=== PATIENT | female | born 1945 | race Caucasian/White ===

== ENCOUNTER 2025-01-25 11:45 | Observation (INO) ==
--- NOTE | 2025-01-25 11:48 | Emergency Department Note ---
Impression & Plan Hypertensive urgency, Chest pain ED Provider Note NAME: HOLLEY BOONE AGE: 79 SEX: F : 1945 ARRIVES VIA: Ambulance INFORMANT: Patient, ED PROVIDER(S): Rodríguez Beasley MD CHIEF COMPLAINT: Chest pressure MEDICAL DECISION MAKING: Patient presents with the above reportedly did have resolution of symptoms with the time of assessment was 6 out of 10. Patient still noted to be hypertensive. The patient's EKG without any obvious ischemic changes although from comparison of EKG en route the patient may have had subtle depressions in the lateral leads. Patient was ordered blood work EKG troponin chest x-ray. Patient was ordered sublingual nitro as the patient's blood pressure was in the 160s. Prior to arrival was noted to be greater than 200. Patient's blood work shows a normal white count mild anemia hemoglobin 9.8. Platelet count is unremarkable. The patient's kidney function unremarkable. Chest x-ray does show consolidative changes which could be pneumonia versus atelectasis. Patient states that she has chronic cough but this is unchanged. Urinalysis shows ketones and trace blood in the urine. Patient denies any shortness of breath. Given the patient's significant hypertension and associated chest plain with her prehospital EKG showing subtle depressions in the lateral leads do believe the patient would benefit from admission monitoring echo and further antihypertensive control strategies. I did speak with the on- call hospitalist service MARIA G Lin and the patient was admitted to medicine service by Dr. Rico. Discussion w/ other healthcare providers: Sam Abreu PA-C Prior /Outside records reviewed: None Differential diagnosis: Cardiac ischemia, aortic dissection, pulmonary embolism, pneumothorax, pneumonia, pericarditis, myocarditis, GERD, cholecystitis, pancreatitis, musculoskeletal, as well as other pathologies were considered. Diagnostics, as interpreted by me: ECG: Normal sinus rhythm, rate of 75, normal intervals, normal axis no ST elevations. Prehospital EKG interpreted by myself Normal sinus rhythm, rate of 82, normal intervals, normal axis, possible subtle depressions in the lateral leads. No obvious STEMI. Cardiac monitoring: An order was placed for continuous cardiac monitoring. The monitor shows a rate of 62 with sinus rhythm. Patient was placed on pulse oximetry Medical decision rules: None Imaging studies: I informally interpreted the patient's Consolidative changes noted at the bilateral bases with formal report to follow. HPI: Patient presents due to concern for chest pain. The patient reportedly developed chest pressure around 10 AM today. The patient states that it was diffuse and nonradiating but 10 out of 10 in nature. Patient reportedly was hypertensive with a systolic in the 200s. The patient states that this is not happened before. Patient states she has a chronic cough and a history of asthma but this does not feel similar. Patient did take thyroid medication this morning but does not take any other medicines. Patient denies any shortness of breath no leg swelling or calf pain. Patient denies any prior history of DVT or PE. PAST MEDICAL HISTORY: See Below PAST SURGICAL HISTORY: See Below SOCIAL HISTORY: See Below HOME MEDICATIONS: See Below ALLERGIES: See Below VITALS: See Below PHYSICAL EXAMINATION: GENERAL: NAD, non-toxic. EYE EXAM: Normal conjunctiva. PERRL, no anisocoria and EOM's grossly intact w/o pain. OROPHARYNX: Moist mucus membranes, grossly normal dentition. NECK: Trachea midline, no stridor. Supple, no nuchal rigidity, no adenopathy, non-tender. No signs of meningismus. FROM of the neck with good chin to chest and neck extension. LUNGS: Clear to auscultation. Normal chest wall mechanics. HEART: NSR, no MRG. ABDOMEN: Abdomen soft, non-tender, no masses, no rebound or guarding. BACK: No CVA TTP. SKIN: No rashes and no bruising. UPPER EXTREMITIES: Upper extremities are grossly normal. LOWER EXTREMITIES: Grossly normal, no edema. NEURO EXAM: A&O x3, cranial nerves II-XII grossly intact, normal speech, moves all 4 extremities. Past Med/Surg History Problem List (Updated 01/25/25 @ 16:53 by Rodríguez Beasley MD) Hypertensive urgency (Acute) Chest pain (Acute) Pituitary adenoma TIA (transient ischemic attack) Brain TIA (Acute) Medical History (Updated 01/25/25 @ 16:53 by Rodríguez Beasley MD) Anxiety Family History Other Family history non-contributory Social History Smoking Status: Never smoker Do You Dip or Chew Tobacco: No; Hx Alcohol Use: Yes Alcohol type: wine Hx Substance Use: No Preferred Language: Marshallese Communication Ability: Effective Hr Shared Services Consultant Required: No Beliefs That Will Affect Care: None marital status: Single Current Living Situation: Alone Feels Safe at Home: Yes Assistive Devices: None Allergies Allergies Allergy/AdvReac Type Severity Reaction Status Date / Time CLINDAMYCIN Allergy Unknown DIARRHEA Uncoded 10/10/18 03:19 SELDANE Allergy Unknown BP Uncoded 10/10/18 03:19 INCREASED ZITHROMAX Allergy Unknown ? Uncoded 10/10/18 03:19 Home Meds Home Medications Medication Instructions Recorded Confirmed Calcium 600 + D(3) 1 tab PO DAILY 10/10/18 01/25/25 albuterol sulfate 90 mcg/actuation 2 puff inhalation Q6H PRN 10/10/18 01/25/25 aerosol inhaler Shortness Of Breath Or Wheezing escitalopram oxalate 10 mg tablet 20 mg PO DAILY 10/10/18 01/25/25 montelukast 10 mg tablet 10 mg PO PM 10/10/18 01/25/25 aspirin 81 mg tablet 81 mg PO HS 01/25/25 01/25/25 atorvastatin 20 mg tablet 20 mg PO DAILY 01/25/25 01/25/25 ibandronate 150 mg tablet 150 mg PO MONTHLY 01/25/25 01/25/25 levothyroxine 25 mcg tablet 25 mcg PO DAILY 01/25/25 01/25/25 Results & Data (ED) Vital Signs Vital Signs - 24 hr 01/25/25 11:32 01/25/25 11:32 01/25/25 11:56 Temperature 36.6 C Temperature Source Oral Pulse Rate 75 64 Pulse Rate from SpO2 Sensor 66 Pulse Rhythm Regular Pulse Strength Normal Respiratory Rate 20 15 Respiratory Effort / Characteristics Non-Labored Spontaneous Non-Labored Spontaneous Respiratory Depth Normal Normal Respiratory Pattern Regular Blood Pressure 165/74 H Blood Pressure Mean 104 Blood Pressure Position Semi-fowlers Pulse Oximetry 98 97 Oxygen Delivery Method Room Air Room Air Room Air Sepsis Recent Fever Within 48 Hours No Sepsis New/Unexplained Change in Mental Status No Sepsis Action Taken by Nursing No Action Required 01/25/25 12:00 01/25/25 12:03 01/25/25 12:05 Temperature Temperature Source Pulse Rate 69 62 Pulse Rate from SpO2 Sensor 65 Pulse Rhythm Pulse Strength Respiratory Rate 16 22 Respiratory Effort / Characteristics Respiratory Depth Respiratory Pattern Blood Pressure 177/96 H Blood Pressure Mean 115 Blood Pressure Position Pulse Oximetry 98 99 Oxygen Delivery Method Room Air Room Air Sepsis Recent Fever Within 48 Hours Sepsis New/Unexplained Change in Mental Status Sepsis Action Taken by Nursing 01/25/25 12:15 01/25/25 12:23 01/25/25 12:26 Temperature Temperature Source Pulse Rate 72 60 Pulse Rate from SpO2 Sensor 60 Pulse Rhythm Pulse Strength Respiratory Rate 15 Respiratory Effort / Characteristics Respiratory Depth Respiratory Pattern Blood Pressure 140/73 Blood Pressure Mean 110 Blood Pressure Position Pulse Oximetry 100 Oxygen Delivery Method Room Air Sepsis Recent Fever Within 48 Hours Sepsis New/Unexplained Change in Mental Status Sepsis Action Taken by Nursing 01/25/25 12:26 01/25/25 12:30 01/25/25 12:30 Temperature Temperature Source Pulse Rate Pulse Rate from SpO2 Sensor Pulse Rhythm Pulse Strength Respiratory Rate Respiratory Effort / Characteristics Respiratory Depth Respiratory Pattern Blood Pressure 140/73 141/78 H 141/78 H Blood Pressure Mean 110 97 97 Blood Pressure Position Pulse Oximetry Oxygen Delivery Method Sepsis Recent Fever Within 48 Hours Sepsis New/Unexplained Change in Mental Status Sepsis Action Taken by Nursing 01/25/25 12:35 01/25/25 12:56 01/25/25 13:00 Temperature Temperature Source Pulse Rate 60 70 Pulse Rate from SpO2 Sensor 61 58 L Pulse Rhythm Pulse Strength Respiratory Rate 19 19 Respiratory Effort / Characteristics Respiratory Depth Respiratory Pattern Blood Pressure 138/80 Blood Pressure Mean 98 Blood Pressure Position Pulse Oximetry 95 Oxygen Delivery Method Room Air Sepsis Recent Fever Within 48 Hours Sepsis New/Unexplained Change in Mental Status Sepsis Action Taken by Nursing 01/25/25 13:00 01/25/25 13:02 01/25/25 13:33 Temperature Temperature Source Pulse Rate 56 L Pulse Rate from SpO2 Sensor 56 L 59 L Pulse Rhythm Pulse Strength Respiratory Rate 17 Respiratory Effort / Characteristics Respiratory Depth Respiratory Pattern Blood Pressure 138/80 Blood Pressure Mean 98 Blood Pressure Position Pulse Oximetry 98 98 Oxygen Delivery Method Room Air Room Air Sepsis Recent Fever Within 48 Hours Sepsis New/Unexplained Change in Mental Status Sepsis Action Taken by [facility] Medications Current Medication List: was personally reviewed by me Laboratory Data Attestation: I reviewed the patient's lab results. 01/25/25 12:00 01/25/25 12:00 Lab Results 01/25/25 Range/Units 12:00 WBC 7.04 (4.8-10.8) K/ul RBC 4.15 L (4.20-5.40) M/uL Hgb 11.8 L (12.0-16.0) g/dl Hct 35.9 L (37.0-47.0) % MCV 86.5 (80.0-100.0) fL MCH 28.4 (25.0-34.0) pg MCHC 32.9 (32.0-36.0) g/dL RDW Std Deviation 43.8 (36.4-46.3) fL RDW Coeff of Sharif 13.9 (11.5-14.5) % Plt Count 240 (130-400) K/uL MPV 10.9 (9.4-12.4) fL Immature Gran % (Auto) 0.3 % Neut % (Auto) 37.6 % Lymph % (Auto) 48.4 % Mcmullen % (Auto) 9.5 % Eos % (Auto) 3.6 % Baso % (Auto) 0.6 % Neut # (Auto) 2.65 (1.40-6.50) K/uL Lymph # (Auto) 3.41 H (1.20-3.40) K/uL Mcmullen # (Auto) 0.67 H (0.11-0.59) K/uL Eos # (Auto) 0.25 (0.00-0.50) K/uL Baso # (Auto) 0.04 (0.00-0.20) K/uL Immature Gran # (Auto) 0.02 (0.01-0.20) K/uL PT 10.6 (9.0-12.0) Seconds INR 1.0 (0.9-1.1) APTT 26 (21-31) Seconds PTT Ratio 1.0 Sodium 136 (136-145) mmol/L Potassium 4.1 (3.5-5.1) mmol/L Chloride 103 (98-107) mmol/L Carbon Dioxide 27 (21-32) mmol/L Anion Gap 6 (3-11) BUN 23 (6-23) mg/dl Creatinine 0.76 (0.6-1.2) mg/dl Est Cr Clr Drug Dosing 54.9 ml/min eGFR 79.16 BUN/Creatinine Ratio 30.3 H (10-20) Glucose 110 H (70-99(Fasting)) mg/dl Calcium 8.7 (8.6-10.3) mg/dl Total Bilirubin 0.7 (0.2-1.0) mg/dl AST 25 (13-39) U/L ALT 19 (7-52) U/L Alkaline Phosphatase 69 (34-104) U/L Troponin I High Sens 5.8 (0-14) pg/ml Total Protein 6.9 (6.0-8.3) gm/dl Albumin 4.0 (3.4-5.0) gm/dl Globulin 2.9 (2.5-4.0) gm/dl Albumin/Globulin Ratio 1.4 (0.9-2) Lipase 41 (11-82) U/L Administered Medications Losartan Potassium (Losartan Potassium 50 Mg Tab) 100 mg PO QAM ALISA Stop: 02/24/25 14:48 Last Admin: 01/25/25 15:48 Dose: 100 mg Documented By: [facility] Discontinued Medications Nitroglycerin (Nitroglycerin Sl 0.4 Mg/Tab Tab) 0.4 mg SL NOW STA Stop: 01/25/25 12:05 Last Admin: 01/25/25 12:23 Dose: 0.4 mg Documented By: [facility] Imaging Data Radiologist's Impression: Chest X-Ray 01/25/25 12:03 XR chest 1V portable CLINICAL HISTORY: Chest pain, nonspecific COMPARISON STUDY: 10/10/2018 FINDINGS: Stable mild cardiomegaly without pulmonary vascular congestion. There is interval mild stranding opacity in the lung bases. No other consolidation or pleural effusion. No pneumothorax. IMPRESSION: Atelectasis versus early pneumonia in the lung bases. ACT 112: Negative or not required by law. Electronically signed by: Frantz Lacey M.D. 01/25/2025 12:55 PM Discharge Plan Visit Data Chief Complaint: Cardiac Assessment ED Provider: Rodríguez Beasley Discharge Problem: Hypertensive urgency, Chest pain Patient Disposition: Admitted As Inpatient Discharge Instructions Interventions: ED Discharge Assessment Last Done: 01/25/25 14:14 Discharge Problem: Chest pain Qualifiers: Chest pain type: unspecified Qualified Code(s): R07.9 - Chest pain, unspecified
[2025-01-25] MEDS: NITROGLYCERIN SL 0.4 MG/TAB TAB SL STA (12:23)
--- NOTE | 2025-01-25 12:56 | XRay Report ---
XR chest 1V portable CLINICAL HISTORY: Chest pain, nonspecific COMPARISON STUDY: 10/10/2018 FINDINGS: Stable mild cardiomegaly without pulmonary vascular congestion. There is interval mild stra nding opacity in the lung bases. No other consolidation or pleural effusion. No pneumothorax. IMPRESSION: Atelectasis versus early pneumonia in the lung bases. ACT 112: Negative or not required by law. Electronically signed by: Frantz Lacey M.D. 01/25/2025 12:55 PM
[2025-01-25 13:01] LABS: Basophils # (auto) 0.04 K/uL (0.00-0.20); Basophils % (auto) 0.6 %; Eosinophils # (auto) 0.25 K/uL (0.00-0.50); Eosinophils % (auto) 3.6 %; Hematocrit (blood only) 35.9 % (37.0-47.0); Hemoglobin 11.8 g/dl (12.0-16.0); Immature Granulocytes # (auto) 0.02 K/uL (0.01-0.20); Immature Granulocytes % (auto) 0.3 %; Lymphocytes # (auto) 3.41 K/uL (1.20-3.40); Lymphocytes % (auto) 48.4 %; Mean Corpuscular Hemoglobin 28.4 pg (25.0-34.0); Mean Corpuscular Hgb Conc 32.9 g/dL (32.0-36.0); Mean Corpuscular Volume 86.5 fL (80.0-100.0); Mean Platelet Volume 10.9 fL (9.4-12.4); Monocytes # (auto) 0.67 K/uL (0.11-0.59); Monocytes % (auto) 9.5 %; Neutrophils # (auto) 2.65 K/uL (1.40-6.50); Neutrophils % (auto) 37.6 %; Platelet Count 240 K/uL (130-400); RDW Coefficient of Variation 13.9 % (11.5-14.5); RDW Standard Deviation 43.8 fL (36.4-46.3); Red Blood Count 4.15 M/uL (4.20-5.40); White Blood Count 7.04 K/ul (4.8-10.8)
[2025-01-25 13:05] LABS: Albumin Globulin Ratio 1.4 (0.9-2); BUN Creatinine Ratio 30.3 (10-20); Bilirubin,Total 0.7 mg/dl (0.2-1.0); Calcium 8.7 mg/dl (8.6-10.3); Creatinine Clr Calc Pharmacy 54.9 ml/min; Globulin 2.9 gm/dl (2.5-4.0); Partial Thromboplastin Time 26 Seconds (21-31); Potassium 4.1 mmol/L (3.5-5.1); Prothrombin Time 10.6 Seconds (9.0-12.0); Total Protein 6.9 gm/dl (6.0-8.3)
[2025-01-25 13:10] LABS: Troponin I High Sensitivity 5.8 pg/ml (0-14)
--- NOTE | 2025-01-25 13:21 | Electrocardiogram Report ---
Test Reason : Blood Pressure : */* mmHG Vent. Rate : 75 BPM Atrial Rate : 75 BPM P-R Int : 172 ms QRS Dur : 80 ms QT Int : 378 ms P-R-T Axes : 37 0 29 degrees QTcB Int : 422 ms Normal sinus rhythm Normal ECG When compared with ECG of 10-Oct-2018 01:33, Premature supraventricular complexes are no longer Present Confirmed by Wayne Nogueira ([id number]) on 01/25/2025 1:20:36 PM Referred By: REFERRED SELF Confirmed By: Wayne Nogueira
--- NOTE | 2025-01-25 13:29 | History & Physical Report ---
Date of Service January 25, 2025 Assessment & Plan (1) Chest pain: Plan: Mandy Mosley is an 79y/o F with PMHx significant for pituitary macroadenoma, HLD, acquired hypothyroidism, prediabetes, mild persistent asthma without complication, mixed rhinitis, senile osteoporosis, anemia, mixed urge and stress incontinence, depression with anxiety and history of TIA who presented to the ED via EMS from home with complaint of chest pain. S/p 324mg ASA and 2 doses of SL nitroglycerin with resolution of her chest pain. EKG performed in the ED without any obvious ischemic changes however EKG en route to the ED performed by EMS did have some subtle ST depressions in the lateral leads. Initial troponin was negative. Repeat troponin pending. CXR reviewed. No infectious signs/symptoms to suggest PNA at this time - suspect atelectasis. Prior TTE from September 2018 with LVEF=65-70%, mild concentric LVH, grade 1 DD and mild tricuspid regurgitation. Obtain updated TTE. EKG with chest pain PRN. Continue to trend troponin Q6H x 3. Appreciate routine cardiology consult. NPO at [place] for possible stress testing tomorrow. Increase atorvastatin to 40mg daily. Fasting lipid panel in AM. Continue ASA 81mg daily. (2) Dysuria: Plan: Endorses having some dysuria last evening but is now resolved. UA reviewed and w/o evidence of infection. (3) Hypertensive urgency: Plan: Noted to have a significantly elevated SBP in the 200s en route to the ED; SBP improved to the 160s at the time of our conversation s/p additional dose of SL nitroglycerin. Not currently on any antihypertensives. Starting losartan 100mg daily for now and will monitor BP trend. Other Chronic Medical Conditions: HLD - Atorvastatin dose increased as per above. Anxiety - Continue Lexapro. Asthma - Well-controlled, continued Singulair. Hypothyroidism - Continue levothyroxine. Prediabetes - Hgb A1c 6.4% about 2 months ago. Can f/u regarding this as an outpatient. DVT Prophylaxis: SQ Heparin Code Status: FULL CODE PCP: Aster Shay MD Disposition: Admit to med/telemetry for further inpatient evaluation and management. Patient seen in collaboration with Dr. Rico. Please see addendum. I spent a total of 45 minutes coordinating, documenting, and providing care for this patient excluding time spent in the performance of separately billed services or time spent by another provider/QHP. This included personally reviewing all current laboratories and imaging studies, medical reconciliation, outpatient chart review and discussion with specialists. This chart was completed in part utilizing Speech Voice Recognition Software. Grammatical errors, random word insertions, pronoun errors, and incomplete sentences are an occasional consequence of this system due to software limitations, ambient noise, and hardware issues. Any formal questions or concerns about the content, text, or information contained within the body of th is dictation should be directly addressed to the provider for clarification. History of Present Illness Chief Complaint: Chest Pain Primary Care Provider: Aster Shay MD Mandy Mosley is an 79y/o F with PMHx significant for pituitary macroadenoma, HLD, acquired hypothyroidism, prediabetes, mild persistent asthma without complication, mixed rhinitis, senile osteoporosis, anemia, mixed urge and stress incontinence, depression with anxiety and history of TIA who presented to the ED via EMS from home with complaint of chest pain. History obtained from the patient, family member at bedside, discussion with ED provider and associated chart review. Endorses experiencing a sudden onset of diffuse chest pressure around 10AM this morning whilst sitting at her computer desk. Reports having panic attacks in the past with associated chest pain and pressure however this was more intense in nature when compared to those prior experiences. Mentions she took 81mg ASA without any relief in her chest pressure at home therefore she called EMS. Denies any associated SOB, diaphoresis or N/V. Did receive 324mg ASA and 1 dose of SL nitroglycerin en route to the ED with some relief. Received an additional dose of SL nitroglycerin in the ED with complete resolution of her symptoms at the time of our conversation. EKG performed in the ED without any obvious ischemic changes however EKG en route to the ED performed by EMS did have some subtle ST depressions in the lateral leads. Initial troponin was negative. Noted to have a significantly elevated SBP in the 200s en route to the ED; SBP improved to the 160s at the time of our conversation s/p additional dose of SL nitroglycerin. Not currently on any antihypertensives. Reports taking her levothyroxine this morning. Denies any abdominal pain or bowel habit changes. Does endorse experiencing some dysuria last evening but reports this has resolved. Denies any fevers, body aches or chills. Has a chronic nonproductive cough. Also with chronic rhinitis due to seasonal allergies. No smoking history. Rare alcohol use. No prior cardiac history such as MT or heart disease. Prior TTE from September 2018 with LVEF=65-70%, mild concentric LVH, grade 1 DD and mild tricuspid regurgitation. Allergies Allergy/AdvReac Type Severity Reaction Status Date / Time CLINDAMYCIN Allergy Unknown DIARRHEA Uncoded 10/10/18 03:19 SELDANE Allergy Unknown BP Uncoded 10/10/18 03:19 INCREASED ZITHROMAX Allergy Unknown ? Uncoded 10/10/18 03:19 Home Medications Medication Instructions Recorded Confirmed Type Calcium 600 + D(3) 1 tab PO DAILY 10/10/18 01/25/25 History albuterol sulfate 90 mcg/actuation 2 puff inhalation Q6H PRN 10/10/18 01/25/25 History aerosol inhaler Shortness Of Breath Or Wheezing escitalopram oxalate 10 mg tablet 20 mg PO DAILY 10/10/18 01/25/25 History montelukast 10 mg tablet 10 mg PO PM 10/10/18 01/25/25 History aspirin 81 mg tablet 81 mg PO HS 01/25/25 01/25/25 History atorvastatin 20 mg tablet 20 mg PO DAILY 01/25/25 01/25/25 History ibandronate 150 mg tablet 150 mg PO MONTHLY 01/25/25 01/25/25 History levothyroxine 25 mcg tablet 25 mcg PO DAILY 01/25/25 01/25/25 History Past Med/Surg History Problem List (Updated 01/25/25 @ 18:27 by Machelle Lilly PA-C) Dysuria Hypertensive urgency (Acute) Chest pain (Acute) Pituitary adenoma TIA (transient ischemic attack) Brain TIA (Acute) Medical History (Updated 01/25/25 @ 18:27 by Machelle Lilly PA-C) Anxiety Family History Other Family history non-contributory Social History Smoking Status: Never smoker Do You Dip or Chew Tobacco: No; Hx Alcohol Use: Yes Alcohol type: wine Hx Substance Use: No Preferred Language: Spanish Communication Ability: Effective [place] Required: No Beliefs That Will Affect Care: None marital status: Single Current Living Situation: Alone Feels Safe at Home: Yes Assistive Devices: None Review of Systems Review of Systems: At least ten systems reviewed and negative, except as noted in the HPI. Physical Exam Physical Exam: General: WD/WN, NAD, sitting up in bed, pleasant, conversing appropriately. A+Ox3, anxious affect. HEENT: Normocephalic, atraumatic. Conjunctivae normal. External ear and nose normal, oropharynx normal. Respiratory: Normal respiratory effort, lungs clear to auscultation bilaterally. + chronic dry cough. Cardiovascular: Regular rate and rhythm. Normal peripheral pulses. No BLE edema. Abdomen/GI: Normal bowel sounds, soft, nontender to palpation in all quadrants. Extremities/Musculoskeletal: No cyanosis or clubbing, extremities motor strength intact, moves all extremities. Neurologic: No overt focal deficits, CN's II-XI not formally tested but appear grossly intact bilaterally. Results & Data Results & Data Vital Signs (Past 12 Hours) Vital Signs Temp Pulse Resp BP Pulse Ox O2 Del Method 01/25/25 12:15 72 01/25/25 12:03 69 16 98 Room Air 01/25/25 11:32 36.6 C 75 20 165/74 H 98 Room Air 01/25/25 11:32 Room Air Laboratory Results Short CBC 01/25/25 Range/Units 12:00 WBC 7.04 (4.8-10.8) K/ul Hgb 11.8 L (12.0-16.0) g/dl Hct 35.9 L (37.0-47.0) % Plt Count 240 (130-400) K/uL BMP 01/25/25 12:00 Sodium 136 Potassium 4.1 Chloride 103 Carbon Dioxide 27 BUN 23 Creatinine 0.76 Glucose 110 H Calcium 8.7 Liver Function 01/25/25 Range/Units 12:00 Total Bilirubin 0.7 (0.2-1.0) mg/dl AST 25 (13-39) U/L ALT 19 (7-52) U/L Alkaline Phosphatase 69 (34-104) U/L Albumin 4.0 (3.4-5.0) gm/dl Diagnostic Findings Chest X-Ray 01/25/25 12:03 XR chest 1V portable CLINICAL HISTORY: Chest pain, nonspecific COMPARISON STUDY: 10/10/2018 FINDINGS: Stable mild cardiomegaly without pulmonary vascular congestion. There is interval mild stranding opacity in the lung bases. No other consolidation or pleural effusion. No pneumothorax. IMPRESSION: Atelectasis versus early pneumonia in the lung bases. ACT 112: Negative or not required by law. Electronically signed by: Frantz Lacey M.D. 01/25/2025 12:55 PM Medications Administered Discontinued Medications Nitroglycerin (Nitroglycerin Sl 0.4 Mg/Tab Tab) 0.4 mg SL NOW STA Stop: 01/25/25 12:05 Last Admin: 01/25/25 12:23 Dose: 0.4 mg Documented By: [facility] Code Status & VTE Plan Code Status FULL CODE Supervising Physician Co-Signing Physician Notes Patient seen and examined independently. Patient presents to the hospital with concern of chest discomfort; reports multiple events in the last couple of days. EKG on admission shows normal sinus rhythm. High sensitive troponin is negative. Patient was given aspirin and nitro; reported relief of the symptoms. Plan to admit to telemetry; trend troponin, obtain echocardiogram, start losartan for high blood pressure and possible stress test/ischemic workup as per cardiology. I have reviewed the advanced practitioner's documentation, and I agree with, and take responsibility for the plan of care I spent a total of 20 minutes coordinating, documenting, and providing care for this patient excluding time spent in the performance of separately billed services. All of the aforementioned completed while collaborating with the assigned advanced practitioner for a full treatment plan (1) Chest pain Chest pain type: unspecified Qualified Code(s): R07.9 - Chest pain, unspecified
[2025-01-25] MEDS ORDERED: ALBUTEROL HFA 8 GM INHALER INH PRN (14:27)
[2025-01-25] MEDS ORDERED: MAGNESIUM HYDROXIDE SUSP 30 ML UDC PO PRN (14:49)
[2025-01-25] MEDS ORDERED: NITROGLYCERIN SL 0.4 MG/TAB TAB SL PRN (14:49)
[2025-01-25] MEDS ORDERED: ONDANSETRON INJ 2 MG/ML 2 ML VIAL IV PRN (14:49)
[2025-01-25] MEDS ORDERED: ACETAMINOPHEN 325 MG TAB PO PRN (14:49)
[2025-01-25] MEDS ORDERED: POLYETHYLENE (MIRALAX) 17 GM PACK PO PRN (14:49)
--- NOTE | 2025-01-25 15:26 | Communication Note ---
Date of Service: January 25, 2025
[2025-01-25] MEDS: LOSARTAN POTASSIUM 50 MG TAB PO SCH (15:48)
--- NOTE | 2025-01-25 15:54 | Cardiology Consultation ---
Date of Consultation January 25, 2025 Assessment & Plan (1) Chest pain: (2) Hypertensive urgency: Plan Patient admitted with chest pressure starting this morning while working on her computer. There was mention of possible subtle ST depression in lateral leads by EMS, but this EKG is not available to review at this time EKG on arrival to ER demonstrating NSR without acute ischemic changes. HS troponin negative x2. Symptoms alleviated by several SL nitro in ER. Echo results pending. continue ASA and statin Also found to be hypertensive on arrival. She has a history of situational hypertension but not on medical therapies, as typically well controlled. Started on losartan 100 mg daily on arrival, first dose pending. Currently resting comfortably, only mild chest pressure noted. Consider adding topical nitrates or amlodipine if she remains hypertensive or worsening chest pain. She has dry cough, but no other clinical signs of acute respiratory illness. chest xray read as possible atelectasis vs early pneumonia. No fever or chills. NPO after midnight Lexiscan stress test tomorrow AM. Case discussed with Dr. Wooten I spent a total of 60 minutes on the date of service in preparation, delivery, and documentation of the care provided to this patient, excluding any time spent in the performance of separately billed services. Erendira Phelps PA-C Department of Cardiology, [facility] This chart was completed in part utilizing Speech Voice Recognition Software. Grammatical errors, random word insertions, pronoun errors, and incomplete sentences are an occasional consequence of this system due to software limitations, ambient noise, and hardware issues. Any formal questions or concerns about the content, text, or information contained within the body of this dictation should be directly addressed to the provider for clarification. Supervising Physician Co-Signing Physician Notes Attending attestation: Case reviewed with the advanced practitioner. I have personally performed a history and physical examination on the patient. I have reviewed the advanced practitioner's documentation on the date of service referenced in note, and I agree with, and take responsibility for the plan of care. I spent a total of 20 minutes coordinating, documenting, and providing care for this patient excluding time spent in the performance of separately billed services or time spent by another provider. Sharath Wooten DO History of Present Illness Reason for Consultation: Chest pain; HTN Requesting Physician: [facility] Hospitalist Attending Physician: Dr. Wooten History of Present Illness Patient is a 79 year old female presenting to [facility] this morning with complaints of substernal chest pressure. Symptoms started while sitting at her computer. No radiation or associated symptoms. After about 10 minutes, due to ongoing symptoms, she called 911. When EMS arrived she was treated with SL nitro and ASA. She reports this aided her symptoms but did not fully resolve. Per admission notes, there was mention of EKG demonstrating subtle ST/T wave abnormality with mild ST depression in lateral leads. (Not available to review at this time) EKG on arrival, demonstrating NSR without acute ischemic changes. She was given additional SL nitro on arrival to the ER due to persistent mild chest pressure. She reports this aided her symptoms. HS troponin negative x2 since admission. She was hypertensive on arrival. She reports long history of "situational Hypertension" but not on medication. Her BP is typically well controlled. She admits to alot of "stress" in her life right now, likely causing her hypertension. Upon admission she was started on losartan 100 mg daily. She has not yet received first dose. She also admits to ongoing cough which she attributes to sinus drainage and underlying asthma. No worsening wheeze. No increased dyspnea. No fevers. Chest xray showed atelectasis vs early pneumonia. Other than dry cough, no clinical signs of pneumonia. Yesterday she was feeling great and did a lot of walking as she was showing/training her dog in obedience classes. She walked 10,000 steps without issues. At time of consult, ongoing dry cough reported. No fever or chills. No SOB/dyspnea. No orthpnea, PND or edema. No wheezing. She denies headache or dizziness. she admits to mild chest pressure, but improved from admission. Echo done and pending History includes: 1. Asthma - typically controlled 2. Dyslipidemia 3. Remote possible TIA - on chronic ASA and statin No cardiac history. She had an echo in 2018: LVEF 65-70%; Grade I diastolic dysfunction, mild TR, Systolic pulm artery pressure. Allergies Allergy/AdvReac Type Severity Reaction Status Date / Time CLINDAMYCIN Allergy Unknown DIARRHEA Uncoded 10/10/18 03:19 SELDANE Allergy Unknown BP Uncoded 10/10/18 03:19 INCREASED ZITHROMAX Allergy Unknown ? Uncoded 10/10/18 03:19 Home Medications Medication Instructions Recorded Confirmed Type Calcium 600 + D(3) 1 tab PO DAILY 10/10/18 01/25/25 History albuterol sulfate 90 mcg/actuation 2 puff inhalation Q6H PRN 10/10/18 01/25/25 History aerosol inhaler Shortness Of Breath Or Wheezing escitalopram oxalate 10 mg tablet 20 mg PO DAILY 10/10/18 01/25/25 History montelukast 10 mg tablet 10 mg PO PM 10/10/18 01/25/25 History aspirin 81 mg tablet 81 mg PO HS 01/25/25 01/25/25 History atorvastatin 20 mg tablet 20 mg PO DAILY 01/25/25 01/25/25 History ibandronate 150 mg tablet 150 mg PO MONTHLY 01/25/25 01/25/25 History levothyroxine 25 mcg tablet 25 mcg PO DAILY 01/25/25 01/25/25 History Patient History Medical History (Updated 01/25/25 @ 16:53 by Rodríguez Beasley MD) Anxiety Family History Other Family history non-contributory Social History Smoking Status: Never smoker Do You Dip or Chew Tobacco: No; Hx Alcohol Use: Yes Alcohol type: wine Hx Substance Use: No Preferred Language: Hebrew Communication Ability: Effective Data Recovery Planner Required: No Beliefs That Will Affect Care: None marital status: Single Current Living Situation: Alone Feels Safe at Home: Yes Assistive Devices: None Review of Systems Review of Systems: All systems reviewed & are unremarkable except as noted in HPI & below Physical Exam Constitutional: WD/WN, vitals as above well developed; no acute distress Neck: trachea midline, no thyromegaly Respiratory: normal respiratory effort, lungs clear to auscultation + cough (dry cough) Cardiovascular: Rate/Rhythm: regular rate and regular rhythm Heart Sounds: no murmur Vessels: no JVD Extremities: no edema Gastrointestinal (Abdomen): normal bowel sounds, soft, nontender, no hepatosplenomegaly Neurologic: PERRL, EOMI, accommodation nl, no face palsy, no dysarthria Psychiatric: A+Ox3, euthymic affect Results & Data Vital Signs (Past 12 Hours) Vital Signs Temp Pulse Resp BP BP Pulse Ox O2 Del Method 01/25/25 15:27 Room Air 01/25/25 14:51 36.5 C 19 146/67 H 97 Room Air 01/25/25 14:14 Room Air 01/25/25 14:00 161/79 H 98 Room Air 01/25/25 13:55 171/86 H 01/25/25 13:54 99 01/25/25 13:33 98 Room Air 01/25/25 13:02 56 L 17 98 Room Air 01/25/25 13:00 138/80 01/25/25 13:00 138/80 01/25/25 12:56 70 19 01/25/25 12:35 60 19 95 Room Air 01/25/25 12:30 141/78 H 01/25/25 12:30 141/78 H 01/25/25 12:26 140/73 01/25/25 12:26 140/73 01/25/25 12:23 60 15 100 Room Air 01/25/25 12:15 72 01/25/25 12:05 62 22 99 Room Air 01/25/25 12:03 69 16 98 Room Air 01/25/25 12:00 177/96 H 01/25/25 11:56 64 15 97 Room Air 01/25/25 11:32 36.6 C 75 20 165/74 H 98 Room Air 01/25/25 11:32 Room Air Laboratory Results Cardiac Enzymes 01/25/25 01/25/25 Range/Units 12:00 14:00 AST 25 (13-39) U/L Troponin I High Sens 5.8 6.9 (0-14) pg/ml Coagulation 01/25/25 Range/Units 12:00 PT 10.6 (9.0-12.0) Seconds APTT 26 (21-31) Seconds CBC 01/25/25 Range/Units 12:00 WBC 7.04 (4.8-10.8) K/ul RBC 4.15 L (4.20-5.40) M/uL Hgb 11.8 L (12.0-16.0) g/dl Hct 35.9 L (37.0-47.0) % Plt Count 240 (130-400) K/uL Neut # (Auto) 2.65 (1.40-6.50) K/uL Lymph # (Auto) 3.41 H (1.20-3.40) K/uL [place] # (Auto) 0.67 H (0.11-0.59) K/uL Eos # (Auto) 0.25 (0.00-0.50) K/uL Baso # (Auto) 0.04 (0.00-0.20) K/uL Comprehensive Metabolic Panel 01/25/25 Range/Units 12:00 Sodium 136 (136-145) mmol/L Potassium 4.1 (3.5-5.1) mmol/L Chloride 103 (98-107) mmol/L Carbon Dioxide 27 (21-32) mmol/L BUN 23 (6-23) mg/dl Creatinine 0.76 (0.6-1.2) mg/dl Glucose 110 H (70-99(Fasting)) mg/dl Calcium 8.7 (8.6-10.3) mg/dl AST 25 (13-39) U/L ALT 19 (7-52) U/L Alkaline Phosphatase 69 (34-104) U/L Total Protein 6.9 (6.0-8.3) gm/dl Albumin 4.0 (3.4-5.0) gm/dl Intake and Output 01/25/25 01/25/25 01/25/25 06:59 14:59 22:59 Other: Weight 70 kg Weight Measurement Method Built in [facility] Patient Weight 01/26/25 06:59 Weight 70 kg Diagnostic Findings Telemetry reviewed: NSR in the 70's. She had several transient bouts of sinus arrhythmia, sinus bradycardia dropping into the 40's but resolving quickly. No symptoms. No pauses Echo pending EKG: NSR, normal EKG no acute ischemic changes Chest xray report reviewed: IMPRESSION: Atelectasis versus early pneumonia in the lung bases. Remote echo reviewed form 2018: Normal LVEF 65% Mild concentric LVH Grade I diastolic dysfunction Mild TR Estimated pulm artery systolic pressure is 37 mmHg Medications Administered Current Inpatient Medications Acetaminophen (Acetaminophen 325 Mg Tab) 650 mg PO Q4H PRN PRN Reason: Pain or Fever Stop: 02/24/25 14:48 Albuterol (Albuterol Hfa 8 Gm Inhaler) 2 puffs INH Q6H PRN PRN Reason: Shortness Of Breath Or Wheezing Stop: 02/24/25 14:26 Aspirin (Aspirin 81 Mg Ectab) 81 mg PO HS ALISA Stop: 02/24/25 20:59 Atorvastatin Calcium (Atorvastatin 40 Mg Tab) 40 mg PO DAILY ALISA Stop: 02/25/25 08:59 Calcium/Vitamin D (Calcium 600mg + Vit D 400 Iu Tab) 1 tab PO DAILY ALISA Stop: 02/25/25 08:59 Escitalopram Oxalate (Escitalopram Oxalate 20 Mg Tab) 20 mg PO DAILY ALISA Stop: 02/25/25 08:59 Heparin Sodium (Porcine) (Heparin Sod 5,000 Unit/0.5 Ml Vial) 5,000 units SQ Q12 ALISA Stop: 02/24/25 20:59 Levothyroxine Sodium (Levothyroxine Sodium 25 Mcg Tablet) 25 mcg PO DAILYBB ALISA Stop: 02/25/25 08:59 Losartan Potassium (Losartan Potassium 50 Mg Tab) 100 mg PO QAM ALISA Stop: 02/24/25 14:48 Last Admin: 01/25/25 15:48 Dose: 100 mg Magnesium Hydroxide (Magnesium Hydroxide Susp 30 Ml Udc) 30 ml PO Q12H PRN PRN Reason: Constipation Stop: 02/24/25 14:48 Montelukast Sodium (Montelukast Sodium 10 Mg Tablet) 10 mg PO PM ALISA Stop: 02/24/25 20:59 Nitroglycerin (Nitroglycerin Sl 0.4 Mg/Tab Tab) 0.4 mg SL Q5M PRN PRN Reason: Chest Pain Stop: 02/24/25 14:48 Ondansetron HCl (Ondansetron Inj 2 Mg/Ml 2 Ml Vial) 4 mg IV Q6H PRN PRN Reason: Nausea Stop: 02/24/25 14:48 Polyethylene Glycol (Polyethylene (Miralax) 17 Gm Pack) 17 gm PO DAILY PRN PRN Reason: Constipation Stop: 02/24/25 14:48 (1) Chest pain Chest pain type: unspecified Qualified Code(s): R07.9 - Chest pain, unspecified
[2025-01-25 16:16] LABS: Appearance Urine Clear (Clear); Bilirubin Urine Negative (Negative); Blood Urine 2+ (Negative); Color Urine Yellow; Glucose Urine UA Negative (Negative); Ketones Urine Trace (Negative); Leukocyte Esterase Urine Negative (Negative); Nitrite Urine Negative (Negative); Protein Urine Negative (Negative); Specific Gravity Urine 1.015 (1.000-1.030); Urobilinogen Urine Negative (Negative); pH Urine 8.5 (4.5-7.5)
[2025-01-25 16:48] LABS: Bacteria Urine None Seen (None Seen); Epithelial Cell Urine 0-2 /hpf (0-2); WBC Urine 0-5 /hpf (0-5)
--- OUTSIDE RECORDS SUMMARY | 2025-01-25 19:38 | External Medical Summary ---
Author Name Unknown Address Unknown Organization [id number]:[facility] - [address] [facility] [address] Laboratory Report Ordering Provider Test Date Status ANUM CARPIO 11/10/2024 08:03:06 Final Observation Date Value Abnormality Reference (Units ) Status HbA1C 11/10/2024 08:03:06 6.4 Above high normal 4. 0-5.6 (%) Final The use of HbA1c to monitor glycemic status is based on normal hemoglobin and HbA composition. This test should not be used in patients with abnormal hemoglobin that affects the half life of the red blood cell or the in vivo glycation rates. Glucose, estimated average 11/10/2024 08:03:06 137 Above high normal <126 (mg/dL) Emir osullivan Performing Location [facility] - [address] [facility] [address]
--- OUTSIDE RECORDS SUMMARY | 2025-01-25 19:38 | External Medical Summary | Summary of Care ---
Author Name Unknown Organization [facility] Address [address] [place] [address] Phone [phone] Care Team Providers Care Bottoming Room Inspector Name Role Phone Aster Shay MD Primary Care Provider [phone] Reason for Visit * Reason Comments eRx-Medication Refill Encounter Details Date Type Department Care Team (Late st Contact Info) Description 11/16/2024 Refill General Internal Medicine [facility] [address] [place] [address] Aster Shay MD [address] [place] [address] Depression with anxiety Allergies Active Allergy Reactions Criticality Noted Date Comments Azithromycin Nausea/vomiting Low 12/31/2003 GI Clindamycin Diarrhea Medium 07/01/2001 Terfenadine Unknown 09/26/1999 Lamisil documented as of this encounter (statuses as of 11/18/2024) Medications MULTIVITAMINS PO TABSIndications:D yslipidemia, goal LDL below 130 1 TABLET DAILY 010 Active NATURAL SUPPLEMENT Take 6 Tablets by mouth in the morning. ALJ - consists of Fennel seed; Fenugreek seed; [place]onset Aerial parts; Horseradish root; Mullein [place] Extract. Active fexofenadine (ALLYN) 180 MG TabletIndications :Allergic rhinitis due to other allergic trigger, unspecified rhinitis seasonality Take 1 Tab by mouth daily as needed for Allergies. 30 Tab 11 016 Active Probiotic Product ([employer] PROBIOTIC) CAPS Take by mouth. 017 Active aspirin enteric coated 81 MG TBEC Take 1 Tablet by mouth in the morning. Active NATURAL SUPPLEMENT Take by mouth daily. Bone Builder with magnesium (MCHC with Magnesium and Vitamin D) Active NATURAL SUPPLEMENT Take by mouth daily. Vitamin D3 Active NATURAL SUPPLEMENT Take by mouth daily. Stomach comfort (contains vegetable probiotics) Active Magnesium 250 MG Tablet Take 1 Tablet by mouth in the morning. Active CoQ-10 100 MG Oral Capsule Take by mouth daily. Active Vitamin C 100 MG Oral Tablet Chewable Take 1 Tablet by mouth in the morning. Active Zinc 30 MG Oral Capsule Take by mouth. Activ e Vitamin D (Cholecalciferol) 10 MCG (400 UNIT) Oral CapsuleIndication s:Senile osteoporosis one pill each day --st 05/06/2023 023 Active Fluticasone Propionate HFA 110 MCG/ACT Inhalation Aerosol (Flovent HFA)Indications:M ild persistent asthma with allergic rhinitis without complication Inhale 1 Puff by mouth in the morning and 1 Puff before bedtime. X 2-4 weeks then once daily as directed. 48 g 023 Active Additional Information Patient not taking.Reported on 11/06/2023 Albuterol Sulfate HFA 108 (90 Base) MCG/ACT Inhalation Aerosol SolutionIndicatio ns:Seasonal allergic rhinitis due to pollen,Mild persistent asthma with allergic rhinitis without complication USE 2 INHALATIONS BY MOUTH EVERY 4 HOURS NEEDED FOR SHORTNESS OF BREATH OR WHEEZING 54 g 1 023 Active Levothyroxine Sodium 25 MCG Oral Tablet (Levoxyl)Indicati ons:Acquired hypothyroidism TAKE 1 AND 1/2 TABLETS BY MOUTH DAILY FIRST THING IN THE MORNING AT LEAST 30 MIN PRIOR TO BREAKFAST OR OTHER MEDS. IF UNABLE TO CUT, TAKE 2 TABLETS SATURDAY, SATURDAY, AND SATURDAY AND 1 TABLET ON ALL OTHER DAYS 135 Tablet 3 024 Active Benzonatate 100 MG Oral Capsule (Tessalon Perles) Take 1 Capsule by mouth 3 times a day as needed for Cough. Do not cut, crush, or chew. 50 Capsule 1 024 Active Atorvastatin Calcium 20 MG Oral Tablet (Lipitor)Indicati ons:TIA (transient ischemic attack),Dyslipide alma, goal LDL below 100 TAKE ONE-HALF TABLET BY MOUTH DAILY 45 Tablet 3 024 Active Montelukast Sodium 10 MG Oral Tablet (Singulair)Indica tions:Chronic seasonal allergic rhinitis due to pollen,Intermitte nt asthma with reliever use up to twice per week, uncomplicated TAKE 1 TABLET BY MOUTH DAILY 90 Tablet 3 024 Active Ibandronate Sodium 150 MG Oral Tablet (Boniva)Indicatio ns:Senile osteoporosis TAKE 1 TABLET BY MOUTH ONCE MONTHLY WITH 8 OUNCE WATER 1/2 HOUR BEFORE BREAKFAST AND SIT UPRIGHT FOR 1/2 HOUR 12 Tablet 1 025 Active Escitalopram Oxalate 20 MG Oral Tablet (Lexapro)Indicati ons:Depression with anxiety TAKE 1 TABLET BY MOUTH DAILY 90 Tablet 3 025 Active Escitalopram Oxalate 20 MG Oral Tablet (Lexapro)Indicati ons:Depression with anxiety TAKE 1 TABLET BY MOUTH DAILY 90 Tablet 3 024 2024 Discontinued documented as of this encounter (statuses as of 11/18/2024) Active Problems Problem Noted Date Diagnosed Date Dyslipidemia, goal LDL below 100 05/06/2023 Acquired hypothyroidism 05/06/2023 Prediabetes 05/06/2023 Anemia 05/06/2023 History of hiatal hernia 05/04/2022 History of transient ischemic attack (TIA) 01/12 Pituitary microadenoma 10/13/2018 Overview (06/13/2021): 06/03-Stable 6 mm hypoenhancing pituitary lesion with small exophytic suprasellar component. 05/02--MRI sella--6mm stable hypoenhancing lesion in the anterior pituitary with small exophytic suprasellar component, most consistent with a microadenoma. No mass effect on the optic chiasm.--non-fn on labs 03/2019--refer back endo for eval/rec 4mm Focus diminished enhancement central pituitary --cannot exclude microadenoma on MRI brain 10/10/18 Situational anxiety 10/13/2018 Encounter for screening mammogram for breast can cer 09/07/2016 Overview (09/25/2019): Neg 08/29;08/30(>75% dense);09/30; 10/01-same -left neg, RT> coarse heterogeneous calcifications at 12 o'clock in the posterior depth very slowly increasing.-SCV-ind>sherry ST bx++ H/O colonoscopy 09/07/2016 Overview (03/07/2017): 10/3086-olbxx-qui-rpt 10 yrs>10/16/16-nml-rpt 10 yrs--will be 82 then.. Seasonal allergic rhinitis due to pollen 015 Mild persistent asthma without complication 03/2014 Mixed incontinence urge and stress (male)(female ) 06/10/2009 Senile osteoporosis Overview (11/24/2020): Completed 7 years of actonel 09/2009, vit D, calcium>>12/04-1.1/-2.5-unchg 2014, ct boniva(st 11/2018) Panic attack Overview (05/26/2014): onset in mid 30s Depression with anxiety documented as of this encounter (statuses as of 11/18/2024) Resolved Problems Problem Noted Date Diagnosed Date Resolved Date TIA (transient ischemic attack) 10/13/2018 01/08/2019 Overview (10/31/2018): Echo-10/10/18-Ef 65-70%,mildclvh,gr 1 dd,mild TR; ekg nsr ,occ pvc,rvcd Asthma with severity to be determined 06/10/2009 10/19/2013 Overview (01/23/2016): ICD-10 update of inactive term Other allergic rhinitis 06/10/200904/14 Overview (08/06/2017): ICD-10 update of inactive term Allergic rhinitis 03/07/2017 documented as of this encounter (statuses as of 11/18/2024) Immunizations Name Administration Dates Next Due COVID-19 mRNA, LNP-s, No Pre serve, 2-Dose Series (Moderna) 08/21/2021,12/17/2020,11/19/2020 COVID-19, MRNA-LNP, 24-25, P F, 50 MCG/0.5ML, IM, 12 YRS & ABOVE (Moderna - Spikevax) 07/24/2024 COVID-19, MRNA-LNP, PF, 50 M CG/0.5 mL, 12 YRS AND ABOVE, IM (MODERNA-Spikevax) 07/18/2023 COVID-19, mRNA, LNP-s, PF, B ooster, 100mcg/0.5mg (Moderna) 02/28/2022 Covid-19, Mrna, Lnp-s, Pf, B ivalent, 50 Mcg, IM, 12 yrs and above (Moderna) 08/03/2022 H1N1 2009 Influenza, IM 10/24/2009 Pneumococcal Conjugate Vacc, 13 Valent (Prevnar) 05/10/2015 Pneumococcal Polysaccharide PPV23 (Pneumovax) 12/01/2008 RSV Vac., Recomb, Adjuvant, PF,0.5 Ml (Arexvy) 09/03/2024 Season Influenza, Quad, PF, Adjuvanted, 65+ Yrs, IM (FLUAD) 06/30/2020 Seasonal Influenza Vac., MDV , IM, 0.5 mL (Fluzone) 07/08/2014,07/22/2013,08/26/2012,07/11,08/30/2010,07/01/2009,09/15/2008 ,08/26/2007,08/31/2006 Seasonal Influenza, High Dos e, Trivalent, PF, IM (Fluzone HD) 08/25/2018 Seasonal Influenza, PF, 6 M & above, IM , (FluLaval or Fluzone) 08/18/2018,08/07/2017 Seasonal Influenza, Quadriva lent Hd (Fluzone Hd) 07/31/2023,09/02/2022,08/02/2021 Seasonal Influenza, Quadriva lent, No Preserve, IM 09/07/2016,07/26/2015 Seasonal Influenza, Trivalen t, Adjuvanted, 65+ YRS, PF, (Fluad) 08/06/2024,07/15/2019 TDAP (age 10 and older)(Boostrix) 11/06/2023,03/2014 Varicella Zoster Vaccine (Adult) 10/17/2012 Zoster Vaccine Recombinant (Shingrix) 05/26/2019 ,01/27/2019 documented as of this encounter Social History Tobacco Use Types Packs/Day Years Used Date Smoking Tobacco: Never Smokeless Tobacco: Never Alcohol Use Standard Drinks/Week Comments Yes 0 (1 standard drink = 0.6 oz pur e alcohol) rare PHQ-2 Answer Date Recorded PHQ Adult Total Score 0 05/06/2023 Hunger Vital Sign Answer Date Recorded Within the past 12 months, y ou worried that your food would run out before you got the money to buy more. Never true 07/23/20 23 Within the past 12 months, t he food you bought just didn't last and you didn't have money to get more. Never true 07/23/2023 Childcare Answer Date Recorded Do you feel overwhelmed with taking care of a child, family member or friend? No 07/23/2023 Does your family need help f inding childcare? (Household - for ages 0-17 years) Not on file 07/23/2023 Clothing Answer Date Recorded Have you been unable to get clothing when it was really needed? No 07/23/2023 Is your family able to get c lothes or diapers when needed? (Household - for ages 0-17 years) Not on file 07/23/2023 Personal Safety Answer Date Recorded Do you feel unsafe or have concerns for your saf ety? No 07/23/2023 Do you have concerns for you r family's safety? (Household - for ages 0-17 years) Not on file 07/23/2023 Utilities Answer Date Recorded Do you have trouble paying y our heating, water, or electric bill? No 07/23/2023 Is your family able to pay t he heat, water, or electric bill? (Household - for ages 0-17 years) Not on file 07/23/2023 Does your family have access to good internet? (Household - for ages 0-17 years) Not on file 07/23/2023 Employment Status Answer Date Recorded Are you unemployed or without regular income? No 07/23/2023 Does the household have a re gular source of income? (Household - for ages 0-17 years) Not on file 07/23/2023 Social Connections Answer Date Recorded How often do you feel lonely or isolated from th ose around you? Rarely 07/23/2023 Financial Resource Strain Answer Date R ecorded Do you have any trouble payi ng for your medications, or do you think you might in the future? No 07/23/2023 Does your family have troubl e paying for medicine? (Household - for ages 0-17 years) Not on file 07/23/2023 Transportation Needs Answer Date Record ed READ ONLY Do you have troubl e getting a ride to medical visits or work? Never True 07/23/2023 Does your family have a hard time getting a ride to doctors visits? (Household - for ages 0-17 years) Not on file 07/23/2023 Has lack of transportation k ept you from medical appointments, meetings, work, or from getting things needed for daily living? Check all that apply. (Adult - for ages 18 years and over) Not on file 07/23/2023 Do you (or your family) have trouble finding or paying for a ride (transportation)? (Household - for ages 0-17 years) Not on file 07/23/2023 Housing Stability Answer Date Recorded Do you currently live in a s helter or have no steady place to sleep at night? No 07/23/2023 READ ONLY Do you think you a re at risk of becoming homeless? No 07/23/2023 Does your family worry about paying for your home or becoming homeless? (Household - for ages 0-17 years) Not on file 1 Are you homeless or worried that you might be in the future? (Adult - for ages 18 years and over) Not on file Are you (or your family) leigh ann eless or worried that you might be in the future? (Household - for ages 0-17 years) Not on file Food Insecurity Answer Date Recorded Do you need food for this week? No 07/23/2023 Are you able to get enough f ood for your family? (Household - for ages 0-17 years) Not on file 07/23/2023 Does your family need food t his week? (Household - for ages 0-17 years) Not on file 07/23/2023 Do you always have enough fo od for your family? 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 Not on file Not on file Not on fi le documented as of this encounter Miscellaneous Notes * Telephone Encounter - Sabrina Cat [facility] - 11/17/2024 4:26 PM ESTSigned Prescriptions: Disp Refills Escitalopram Oxalate 20 MG Oral Tablet (Le*90 Tab*3 Sig: TAKE 1TABLET BY MOUTH DAILYAuthorizing Provider: Rasheed SHAY User: SABRINA CAT documented in this encounter Plan of Treatment Upcoming Encounters Date Type Department Care Team (Late st Contact Info) Description 11/18/2024 12:20 PM EST Office Visit General Internal Medicine [facility] [address] [facility] [place] [address] Aster Shay MD [address] [facility] [place] [address] 11/23/2024 1:30 PM EST Imaging Radiology [facility] [address] [place] [id number] 08/06/2025 8:20 AM EDT Telemedicine Endocrinology [address], [place] [phone] Deb Pop MD [address] [id number] 10/20/2025 11:00 AM EST Imaging Radiology [address] [place] [phone] Scheduled Procedures Name Priority Associated Diagnoses Date/Ti me COLONOSCOPY FLEXIBLE PROXIMAL DIAGNOSTIC Recall Colon cancer screening Health Maintenance Due Date Last Done Comments Adult Wellness Visit 02/16/2017 02/17/2016 Depression Monitoring 05/06/2024 05/06/2023 COVID-19 Vaccine ( season) 2024 07/24/2024, 07/18/2023, 08/03/2022, Additional history exists DXA Scan 10/22/2024 10/22/2022, 06/2023, 11/23/2020, Additional history exists HbA1c 11/10/2025 11/10/2024, 04/13, 10/30/2023, Additional history exists TSH 11/10/2025 11/10/2024, 07/15, 05/01/2024, Additional history exists DTap/Tdap Vaccines (3 - Td or Tdap) 11/06/2033 11/06/2023, 10/19/2013, 10/04/2004, Additional history exists Zoster Vaccines Completed 05/26/2019, 01/12, 10/17/2012 Influenza Vaccine (FLU shot) Completed , 07/31/2023, 07/30/2023, Additional history exists VITAMIN D LEVEL ONCE IN A LIFETIME-USE SMARTSET# [id number] Completed 11/10/2024, 10/30/2023, 05/02/2023, Additional history exists HPV (Gardasil) Vaccine Aged Out No lo nger eligible based on patient's age to complete this topic Hepatitis B Vaccine Aged Out No longe r eligible based on patient's age to complete this topic MENINGOCOCCAL (MENACTRA/MENVEO) Aged Out No longer eligible based on patient's age to complete this topic documented as of this encounter Medical Devices Implanted Type Area Chart Writer Device Identifier Shelf Expiration Date Model / Serial / Lot Lens Intraoc 18.5 - [id number] - [id number] Implanted:Qty: 1 on 04/28/2020 by Ge Tomlinson MD at OR [facility] Left: Eye [employer] 11/13/2021 [id number] / [id number] / [id number] Lens Intraoc 18.5 - [id number] - [id number] Implanted:Qty: 1 on 05/09/2020 by Ge Tomlinson MD at OR [facility] Right: Eye [employer] 08/13/2024 [id number] / [id number] / Patch Hernia Ventralex Sml - [id number] Implanted:Qty: 1 on 05/08/2021 by Vinny Cooney MD at OR [facility] N/A: Abdomen CR BARD : DAVOL 06/10/2021 [id number] / / [id number] documented as of this encounter Visit Diagnoses Diagnosis Depression with anxiety Dysthymic disorder Screening mammogram for breast cancer documented in this encounter Advance Directives * Full Code (Latest Code Status on File) Date Activated Date Inactivated Comments 05/08/2021 4:10 PM 05/08/2021 9:13 PM This order r eflects the patients wishes and were consensually agreed upon. Care Teams Bottoming Room Inspector Relationship Specialty Start Date End Date Aster Shay MD [address] [place], [place] [address] PCP - General Internal Medicine 09/07/16 documented as of this encounter
--- OUTSIDE RECORDS SUMMARY | 2025-01-25 19:38 | External Medical Summary ---
Author Name Unknown Address Unknown Organization [id number]:[facility] [place] - [address] [place] [address] Laboratory Report Ordering Provider Test Date Status BALAJIANUM 11/10/2024 08:03:06 Final Deficient: <20 ng/mL
Ins ufficient: 20-29 ng/mL
Recommended/Optimum:30-50 ng/mL

Vitamin D intoxication is rare. If suspicious of Vitamin D toxicity, evaluation of serum Calcium and PTH is recommended. Observation Date Value Abnormality Reference (Units ) Status 25-OH Vitamin D total 11/10/2024 08:03:06 29 >19 (ng/mL) Final Performing Location [facility] [place] - [address] [place] [address]
--- OUTSIDE RECORDS SUMMARY | 2025-01-25 19:38 | External Medical Summary ---
Author Name Unknown Address Unknown Organization [id number][place] [place] [address] [place] [address] Laboratory Report Ordering Provider Test Date Status ANUM CARPIO 11/10/2024 08:06:04 Final Normal: <30 mg/g creatinine< br/>High: 30-300 mg/g creatinine
Very High: >300 mg/g creatinine
Nephrotic: >2200 mg/g creatinine Observation Date Value Abnormality Reference (Units ) Status Albumin, Urine 11/10/2024 08:06:04 <1.20 (mg/dL) Final Creatinine, Urine 11/10/2024 08:06:04 89 (mg/dL) Final Albumin/Creatinine [Mass Ratio] in Urine 11/10/2024 08:06:04 <13 <30 (mg/g Creat) Final Performing Location [facility] [place] [address] [place] [address]
--- OUTSIDE RECORDS SUMMARY | 2025-01-25 19:38 | External Medical Summary | Summary of Care ---
Author Name Unknown Organization [facility] Address [address] [place] [address] Phone [phone] Care Team Providers Care Applique Cutter Name Role Phone Aster Shay MD Primary Care Provider [phone] Reason for Visit * Reason Comments Follow Up Encounter Details Date Type Department Care Team (Late st Contact Info) Description 11/18/2024 12:20 PM EST Office Visit General Internal Medicine [facility] [address] [place] [address] Aster Shay MD [address] [place] [address] Dyslipidemia, goal LDL below 100*; Acquired hypothyroidism; History of transient ischemic attack (TIA); Senile osteoporosis; Depression with anxiety; Pituitary microadenoma (HCC); Vitamin D insufficiency; Encounter for screening mammogram for breast cancer; Extremely dense tissue of both breasts on mammography; Prediabetes; Mixed incontinence urge and stress (male)(female); Mixed rhinitis; Mild persistent asthma without complication Allergies Active Allergy Reactions Criticality Noted Date Comments Azithromycin Nausea/vomiting Low 12/31/2003 GI Clindamycin Diarrhea Medium 07/01/2001 Terfenadine Unknown 09/26/1999 Lamisil documented as of this encounter (statuses as of 11/18/2024) Medications MULTIVITAMINS PO TABSIndications:Dy slipidemia, goal LDL below 130 1 TABLET DAILY 08/30/20 10 Active fexofenadine (ROSA) 180 MG TabletIndications: Allergic rhinitis due to other allergic trigger, unspecified rhinitis seasonality Take 1 Tab by mouth daily as needed for Allergies. 30 Tab 11 09/07/20 16 Active Probiotic Product ([employer] PROBIOTIC) CAPS Take by mouth. 03/07/20 17 Active aspirin enteric coated 81 MG TBEC [...] D (Cholecalciferol) 10 MCG (400 UNIT) Oral CapsuleIndications :Senile osteoporosis one pill each day --st 05/06/2023 05/06/20 23 Active Albuterol Sulfate HFA 108 (90 Base) MCG/ACT Inhalation Aerosol SolutionIndication s:Seasonal allergic rhinitis due to pollen,Mild persistent asthma with allergic rhinitis without complication USE 2 INHALATIONS BY MOUTH EVERY 4 HOURS NEEDED FOR SHORTNESS OF BREATH OR WHEEZING 54 g 1 07/08/20 23 Active Additional Information Patient not taking.Reported on 11/18/2024 Atorvastatin Calcium 20 MG Oral Tablet (Lipitor)Indicatio ns:TIA (transient ischemic attack),Dyslipidem ia, goal LDL below 100 TAKE ONE-HALF TABLET BY MOUTH DAILY 45 Tablet 3 01/30/20 24 Active Montelukast Sodium 10 MG Oral Tablet (Singulair)Indicat ions:Chronic seasonal allergic rhinitis due to pollen,Intermitten t asthma with reliever use up to twice per week, uncomplicated TAKE 1 TABLET BY MOUTH DAILY 90 Tablet 3 03/01/20 24 Active Ibandronate Sodium 150 MG Oral Tablet (Boniva)Indication s:Senile osteoporosis TAKE 1 TABLET BY MOUTH ONCE MONTHLY WITH 8 OUNCE WATER 1/2 HOUR BEFORE BREAKFAST AND SIT UPRIGHT FOR 1/2 HOUR 12 Tablet 1 10/21/19 25 Active Escitalopram Oxalate 20 MG Oral Tablet (Lexapro)Indicatio ns:Depression with anxiety TAKE 1 TABLET BY MOUTH DAILY 90 Tablet 3 11/17/19 25 Active Levothyroxine Sodium 25 MCG Oral Tablet (Levoxyl)Indicatio ns:Acquired hypothyroidism TAKE 1 AND 1/2 TABLETS BY MOUTH DAILY FIRST THING IN THE MORNING AT LEAST 30 MIN PRIOR TO BREAKFAST OR OTHER MEDS 135 Tablet 3 11/18/19 25 Active NATURAL SUPPLEMENT Take 6 Tablets by mouth in the morning. ALJ - consists of Fennel seed; Fenugreek seed; Bonset Aerial parts; Horseradish root; Mullein Wynona Extract. 025 Discontin ued(End of Procedure ) Fluticasone Propionate HFA 110 MCG/ACT Inhalation Aerosol (Flovent HFA)Indications:Mi ld persistent asthma with allergic rhinitis without complication Inhale 1 Puff by mouth in the morning and 1 Puff before bedtime. X 2-4 weeks then once daily as directed. 48 g 05/09/20 23 025 Discontin ued(End of Procedure ) Levothyroxine Sodium 25 MCG Oral Tablet (Levoxyl)Indicatio ns:Acquired hypothyroidism TAKE 1 AND 1/2 TABLETS BY MOUTH DAILY FIRST THING IN THE MORNING AT LEAST 30 MIN PRIOR TO BREAKFAST OR OTHER MEDS. IF UNABLE TO CUT, TAKE 2 TABLETS SATURDAY, SATURDAY, AND SATURDAY AND 1 TABLET ON ALL OTHER DAYS 135 Tablet 3 11/07/19 24 025 Discontin ued(Refil l) Benzonatate 100 MG Oral Capsule (Lennox Sung) Take 1 Capsule by mouth 3 times a day as needed for Cough. Do not cut, crush, or chew. 50 Capsule 1 11/28/19 24 025 Discontin ued(End of Procedure ) documented as of this encounter (statuses as of 11/18/2024) Active Problems Problem Noted Date Diagnosed Date Dyslipidemia, goal LDL below 100 05/06/2023 Acquired hypothyroidism 05/06/2023 Prediabetes 05/06/2023 Anemia 05/06/2023 History of hiatal hernia 05/04/2022 History of transient ischemic attack (TIA) 01/12 Pituitary microadenoma 10/13/2018 Overview (06/13/2021): 06/03-Stable 6 mm hypoenhancing pituitary lesion with small exophytic suprasellar component. 7/20--MRI sella--6mm stable hypoenhancing lesion in the anterior [...] ST bx++ H/O colonoscopy 09/07/2016 Overview (03/07/2017): 10/3092-dluuz-krf-rpt 10 yrs>10/16/16-nml-rpt 10 yrs--will be 82 then.. Mixed rhinitis 05/10/2015 Mild persistent asthma without complication 03/2014 Mixed incontinence urge and stress (male)(female ) 06/10/2009 Senile osteoporosis Overview (11/24/2020): Completed 7 years of actonel 09/2009, vit D, calcium>>2/21-1.1/-2.5-unchg 2014, ct boniva(st 11/2018) Panic attack Overview [...] Date Smoking Tobacco: Never Smokeless Tobacco: Never Tobacco Cessation:Counseling Given: Not Answered Alcohol Use Standard Drinks/Week Comments Yes 0 [...] No 07/23/2023 Does the household have a presbyterian hospitallar source of income? 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 Not on file Not on file Not on fi le documented as of this encounter Last Filed Vital Signs Vital Sign Reading Time Taken Comments Blood Pressure 138/58 11/18/2024 1:21 PM EST Pulse 63 11/18/2024 12:49 PM EST Temperature 36.7 °C (98 °F) 11/18/2024 12:49 PM EST Respiratory Rate 18 11/18/2024 12:49 PM EST Oxygen Saturation 97% 11/18/2024 12:49 PM EST Inhaled Oxygen Concentration - - Weight 68.5 kg (151 lb) 11/18/2024 12:49 PM EST Height 154.9 cm (5' 0.98") 11/18/2024 12:[address] Body Mass Index 28.55 11/18/2024 12:49 PM EST documented in this encounter Progress Notes * Aster Shay MD - 11/18/2024 12:09 PM EST SUBJECTIVE: Mandy Mosley is a 72 year old female. Chief Complaint Patient presents with Follow Up HPI: Patient presents For 6 mth f/u Wt Readings from Last 6 Encounters: 11/18/24 151 lb (68.5 kg) 05/13/24 152 lb 3.2 oz (69 kg) 11/28/23 149 lb 1.9 oz (67.6 kg) 11/20/23 151 lb (68.5 kg) 11/06/23 148 lb 14.4 oz (67.5 kg) 05/06/23 153 lb (69.4 kg) BP Readings from Last 6 Encounters: 11/18/24 144/64 05/13/24 132/64 11/28/23 144/70 11/20/23 132/66 11/06/23 124/66 05/06/23 122/72 Retired from [employer]. H/o TIA 10/10/18: EKG -NSR at rate of 73 no acute changes. ECHO-EF 65-70%,mild CLVH, mild TR, gr 1 DD, LV wall motion nml Chest x-ray no acute findings, mild cardiomegaly. CT of the head no acute findings no evidence of sinusitis. MRI of the brain with and without contrast -no evidence of acute or subacute infarction, 4 mm focusof diminished enhancement with the central pituitary, incidental microadenoma cannot be excluded mild small-vessel white matter changes. Carotid Doppler - no evidence of hemodynamically significant stenosis, +atherosclerosis, systemic hypertension. Labs :normal CBC HB 13.3, platelets 290, normal BMP except BUN 33, creatinine 0.9, normal LFTs, troponin negative, UA unremarkable., TSH 9.2, FT4 0.85(08-1.6) ----st Plavix 75 mg daily for 3 weeks, aspirin 81 mg daily for life, Lipitor 40 mg daily we dec dose 20mg in nov EEG 11/04/18--mild non specific encephalopathy. No epileptiform activity is recorded. Had neuro f/u 11/10/18-plavix taken for 21 days and now stopped continue aspirin 81 mg daily for a lifetime rec MRI sella with brain 05/01. She hasBp meter with her--114/57 and here 116/58 >>03/04/19- ldl 20 dec dose 10mg, LDLD 39 05/01> 04/02-LDL 29 on lipitor 10mg daily>labs at goal 04/03;05/05,05/06 11/01-Cortisol --- level BL high but lower from oct?sec stress 04/06/19-saw Rachel--endo- for fu on 4mm Focus diminished enhancement central pituitary --cannot exclude microadenoma on MRI brain 10/10/18>>rec -check FSH, LH, prolactin levels only thyroid function studies TSH T4 levels. Once this is completed, I would like her to take at 11:00 p.m. 1 mg dexamethasone and the followingmorning and ACTH and cortisol level to document that she has normal response with a 1 mg dexamethasone suppression. 04/06/19- IGF-1 , prolactin, TSH, Ft4 , LH.FSH 04/07/19-----normal dexamethasone suppression test 04/17/19--had MRI brain +sella per neuro-6 mm rounded focus of hypoenhancement at the anterior aspectof pituitary gland near the midline may represent a microadenoma. No suprasellar extension or mass effect on the optic chiasm or cavernous sinuses. --will plan to rpt in 1 year. MRI sella 04/27/20.--stable 6mm hypoenhancing lesion in the anterior pituitary with small exophytic suprasellar component, most consistent with a microadenoma. No mass effect on the optic chiasm. Non functioning on last labs. Saw endo-->Incidentally found pituitary microadenoma 6 mm, stable on MRI 2019. Nonfunctional. These labs look good CORTISOL, POST DEX = 0.8 - negative for [place]'s 06/03-Stable 6 mm hypoenhancing pituitary lesion with small exophytic suprasellar component. 11/04--had f/u 07/04with stable MRI , labs stable-adv f/u 1 yr 11/05--last eval 07/05--fu 11/06--had f/u 08/05--24 ur cortisol and all fasting Pituitary labs-nml, rec fu 1 yr with MRI 11/07--had Eval 08/03/24-Repeat MRI sella with and without contrast--stable Pituitary lesion from 2019 Blood work to check TSH/free T4, acth cortisol--nml Return to clinic in 1 year 10/01-TSH 4.5, FT4 0.8--st levothyroxine 25 mcg 10/02-Rev labs - last FT4 low nml--trial inc dose -25mcg 1.5 tabs --stable on this dose11/04,11/05,05/05,11/06,05/06,11/07 Completed dried plum Study at [facility]--brings in copies dexa. Had life line screening--08/07/17-ekg SB 47, TSH 1.8,, Carotid doppler --?left mild atherosclerosis, SHAMAR and AAA screen neg H/o asthma-- on singulair as well--was off list in february 2016--med list updated 08/29 08/29 Uses proair prn----uses <1 inhaler /yr Last PFT 05/2014---NML daya, ?restriction, no BD response. Nonsmoker, exposed to 2nd hand smoke at work. cxr 12/2013-nml. H/o chr sinus sx--on claritin daily many yrs,singulair.--chg to rosa 08/29 with imp sx. Has not had to use netti pot now Has int nasal congestion/PND. -worse in cold. Rx bronchitis in nov, had lingering cough, cxr neg 05/01 05/05--using alb hfa every am as c/o chest tightness on waking, PND, on singulair daily nt using rosa daily. rec adding flovent--discussed use. 11/06--has not had to use flovent/alb hfa since jun 14-has some dust allergies, uses Rosa daily Flonase as needed Fu Debra-chr anxiety/depression-Was on lexapro 20mg--sep 152017--after TIA sx inc and dose inc 25mg Now seeing therapist weekly .-referred to dietitian On xanax 0.25mg -1 daily Was losing lot of wt -lost 15 lbs and felt sec anxiety --ref dietitian 12/30--had eval 12/25/18--rec 1500cal /d, 60-65 gm protein diet., 2.5gm na /d Mood stable, wt stable 145 lbs 10/01--he saw her 08/01--fu prn as he is retiring 11/04--mood stable 11/05--wt gain slow--mood stable Mood stable 05/05.,11/06,05/06 11/07- stress due to the political situation, is able to handle the stress well. PAP neg 2004, unsatisfactory 06, No IEL ,. + stress + urge inc--uses pads, does not do Kegel ex. G0. 03/07/2017 - pelvic exam --+cystocele mild,vaginal atrophy with dryness Mammo--11/28-Left neg, Rt ind rd ca+, SCV 12/26-benign,rpt 06/28-same; neg 08/29- >75% dense br tissue, same 08/30, 09/12/18 Does not do SBE reg-rec to 10/01-same -left neg, RT> coarse heterogeneous calcifications at 12 o'clock in the posterior depth very slowly increasing. Recommend mag views 09/23/19 -SCV-ind>sherry ST bx--FA chg with ca+--rec scr zeke in 09/26/20--DBT, no new changes.> same 10/17/21> DBT 10/17/22>10/18/23- Ext DBT, unchg tissue marker rt-10/20/24 Csope :NMl 10/31/2006--rpt 10 yrs. 10/16/16--nml--rpt 10 yrs-no need sec to age occ constipation--rel with Mag tab. Osteoporosis: Was on actonel x 7 yrs 09/21 as noted by Dexa 07/28---1.2/-2.6--HR--did not st boniva -- MV, ca 600+d, MV natural supplements, Is on dry plum study at [facility] for osteoporosis --- had dexa 07/12/16---HR again--defers meds. Knows risk of fractures. Will have rpt scan in december and jun 2017.--she does not have results from 12/28- they dd inc ca 600+vd to bid and they dc vd Tab. Exercises - lifts wts, stretches, walks. 09/29--bring in dexa report from [facility]---T score _2.3- L1/2, _3.3 L3, _0.4 L4, and hip -2.7--Frax MOP17%, Hip frac 5.4% Willing to retry actonel and start back on strong women prog at [facility]Ag extension. ---(did not st meño which was ord 09/19/17 sec cost of actonel ) 12/30--st boniva 12/0211/23/20-1.1/-2.5-unchg 2014, ct boniva(st 11/2018)--rpt 2 yrs. 10/22/22-- -1.2/-2.5--HR, stable, boniva maybe helping, ct med, rpt 2 yrs> 12/08-await DEXA scan, if stable ,discussed may need to consider getting a drug holiday 11/23/24-pnd- Seen 02/14/21 with sx bulge in epigastrium--mild diastasis at the last exam, no lump was felt. Does agility training with her dogs CT abd pelvis 02/17/21-Fat containing ventral hernia, containing a small amount of fluid. The presence of fluid may indicate underlying strangulation--saw Kwabena 03/08/21--had surgery 05/08/21. And postop visit, doing well. H/o HH on ba swallow in 90's, has sx reflux with a big meal, takes Becky seltzer prn with relief. Sx occur post meal -unsure Time after, has occ sour eructations, no night sx, no waking with pain. Was on tagamet in past. Never had EGD. 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 Wears seat belts regularly, has smoke Detectors. Does agility training and competition with her dog. Does stretches daily and walks close to 10k steps, d occ 5k on pedometer Has [place] nodes hands, has pain left thumb,no swelling-no otc meds., occ bangay Weight stable, all other review of systems negative, chronic urgent stress incontinence history of constipation on fiber supplements -has not done the Kegel exercises had covid infection 11/28/23 , was given pred taper. Immunizations are uptodate. 04/02-nl fbs,lipids, 08/30-nml bmp, fbs 97, vd 42 05/2016-nl fbs/a1c , lipids--Hi HDL 85. 2010-nl bmp,vd,tsh,alt,lipids Labs rev 11/06,11/07 A1c 6.4%, ch total vit d intake TSH Results: Lab Results Component Value Date/Time TSH - [facility] 2.53 11/10/2024 08:03 AM TSH - [facility] 1.55 08/05/2024 08:46 AM TSH - [facility] 1.67 05/01/2024 09:20 AM TSH - [facility] 1.71 10/20/2020 11:32 AM TSH - [facility] 2.24 09/15/2020 08:03 AM TSH - [facility] 2.78 05/24/2020 08:19 AM TSH - [facility] 9.250 (A) 10/10/2018 12:00 AM Lab Results Component Value Date/Time HGB 12.5 05/01/2024 09:20 AM HGB 12.8 05/02/2023 10:11 AM HGB 11.9 (L) 10/31/2022 08:33 AM HGB 12.5 07/05/2022 08:37 AM HGB 11.9 (L) 04/27/2022 08:59 AM HGB 13.3 10/10/2018 12:00 AM HGB 12.5 09/15/2018 03:18 PM HGB 14.3 10/31/2004 02:56 PM HGB 13.0 09/11/2004 11:41 AM Hemoglobin AIC Results: Lab Results Component Value Date/Time HEMOGLOBIN A1C - [facility] 6.4 (H) 11/10/2024 08:03 AM HEMOGLOBIN A1C - [facility] 6.1 (H) 05/01/2024 09:20 AM HEMOGLOBIN A1C - [facility] 6.3 (H) 10/30/2023 11:08 AM HEMOGLOBIN A1C - [facility] 5.7 06/07/2016 02:42 PM Hemoglobin Results: Lab Results Component Value Date/Time HGB 12.5 05/01/2024 09:20 AM HGB 12.8 05/02/2023 10:11 AM HGB 11.9 (L) 10/31/2022 08:33 AM HGB 13.3 10/10/2018 12:00 AM HGB 12.5 09/15/2018 03:18 PM HGB 14.3 10/31/2004 02:56 PM HGB 13.0 09/11/2004 11:41 AM BUN Results: Lab Results Component Value Date/Time BUN - [facility] 21 (H) 11/10/2024 08:03 AM BUN - [facility] 22 (H) 10/30/2023 11:08 AM BUN - [facility] 23 (H) 05/02/2023 10:11 AM BUN - [facility] 25 (H) 09/20/2020 09:20 AM BUN - [facility] 19 09/14/2019 09:48 AM BUN - [facility] 24 (H) 04/06/2019 11:25 AM Results for orders placed or performed in visit on 11/10/24 BASIC METABOLIC PANEL Result Value Ref Range BUN 21 (H) 6 - 20 mg/dL CREATININE 0.8 0.5 - 1.0 mg/dL EGFR 72 >=60 mL/min SODIUM 140 135 - 146 mmol/L POTASSIUM 4.4 3.5 - 5.1 mmol/L CHLORIDE 104 98 - 107 mmol/L CO2 27 22 - 32 mmol/L ANION GAP 9 7 - 15 mmol/L GLUCOSE 102 70 - 120 mg/dL CALCIUM 9.7 8.4 - 10.2 mg/dL 25-HYDROXY VITAMIN D Result Value Ref Range 25-Hydroxy Vitamin D 29 >19 ng/mL HEMOGLOBIN A1C Result Value Ref Range Hemoglobin A1C 6.4 (H) 4.0 - 5.6 % Estimated Average Glucose 137 (H) <126 mg/dL TSH WITH FREE T4 IF INDICATED Result Value Ref Range TSH 2.53 0.27 - 4.20 uIU/mL MYCODE SST1 Result Value Ref Range MyCode Specimen Freezing of extracted DNA, whole blood and/or serum. MYCODE SST2 Result Value Ref Range MyCode Specimen Freezing of extracted DNA, whole blood and/or serum. ALBUMIN / CREATININE RATIO, URINE Result Value Ref Range Albumin, Random Urine <1.20 mg/dL Creatinine, Random Urine 89 mg/dL Albumin / Creatinine Ratio, Urine <13 <30 mg/g Creat Patient Active Problem List Diagnosis Senile osteoporosis Mixed incontinence urge and stress (male)(female) Mild persistent asthma without complication Panic attack Depression with anxiety Seasonal allergic rhinitis due to pollen Encounter for screening mammogram for breast cancer H/O colonoscopy Pituitary microadenoma (HCC) Situational anxiety History of transient ischemic attack (TIA) History of hiatal hernia Dyslipidemia, goal LDL below 100 Acquired hypothyroidism Prediabetes Anemia Current Outpatient Medications Medication Sig Dispense Refill Albuterol Sulfate HFA 108 (90 Base) MCG/ACT Inhalation Aerosol Solution USE 2 INHALATIONS BY MOUTH EVERY 4 HOURS NEEDED FOR SHORTNESS OF BREATH OR WHEEZING 54 g 1 aspirin enteric coated 81 MG TBEC Take 1 Tablet by mouth in the morning. Atorvastatin Calcium 20 MG Oral Tablet (Lipitor) TAKE ONE-HALF TABLET BY MOUTH DAILY 45 Tablet 3 CoQ-10 100 MG Oral Capsule Take by mouth daily. Escitalopram Oxalate 20 MG Oral Tablet (Lexapro) TAKE 1 TABLET BY MOUTH DAILY 90 Tablet 3 fexofenadine (ROSA) 180 MG Tablet Take 1 Tab by mouth daily as needed for Allergies. 30 Tab 11 Ibandronate Sodium 150 MG Oral Tablet (Boniva) TAKE 1 TABLET BY MOUTH ONCE MONTHLY WITH 8 OUNCE WATER 1/2 HOUR BEFORE BREAKFAST AND SIT UPRIGHT FOR 1/2 HOUR 12 Tablet 1 Levothyroxine Sodium 25 MCG Oral Tablet (Levoxyl) TAKE 1 AND 1/2 TABLETS BY MOUTH DAILY FIRST THINGIN THE MORNING AT LEAST 30 MIN PRIOR TO BREAKFAST OR OTHER MEDS. IF UNABLE TO CUT, TAKE 2 TABLETS SATURDAY, SATURDAY, AND SATURDAY AND 1 TABLET ON ALL OTHER DAYS 135 Tablet 3 Magnesium 250 MG Tablet Take 1 Tablet by mouth in the morning. Montelukast Sodium 10 MG Oral Tablet (Singulair) TAKE 1 TABLET BY MOUTH DAILY 90 Tablet 3 MULTIVITAMINS PO TABS 1 TABLET DAILY NATURAL SUPPLEMENT Take by mouth daily. Bone Builder with magnesium (MCHC with Magnesium and Vitamin D) NATURAL SUPPLEMENT Take by mouth daily. Vitamin D3 NATURAL SUPPLEMENT Take by mouth daily. Stomach comfort (contains vegetable probiotics) Probiotic Product (CVS PROBIOTIC) CAPS Take by mouth. Vitamin C 100 MG Oral Tablet Chewable Take 1 Tablet by mouth in the morning. Vitamin D (Cholecalciferol) 10 MCG (400 UNIT) Oral Capsule one pill each day --05/06/2023 Zinc 30 MG Oral Capsule Take by mouth. No current facility-administered medications for this visit. Past Medical History: Diagnosis Date Allergic rhinitis Anxiety Depressive disorder, not elsewhere classified Elevated blood pressure, situational white coat hypertension History of transient ischemic attack (TIA) 01/12/2019 Intermittent asthma with reliever use up to twice per week 10/19/2013 Menopause age 51 Other osteoporosis 2006 completed 7 years of actonel in 2008, vit D, calcium Panic attack onset in mid 30s Peptic ulcer about 1974 in her 30s Past Surgical History: Procedure Laterality Date COLONOSCOPY 10/23/2006 normal repeat 10 years COLONOSCOPY, DIAGNOSTIC (RECTUM) 10/16/2016 normal, repeat 10 yrs/COLONOSCOPY FLEXIBLE PROXIMAL DIAGNOSTIC performed by David So MD at ENDOSCOPY [facility] COLORECTAL CANCER SCREEN;W/FLE 07/29/01 WNL DENTAL SURGERY PROCEDURE [facility] Dental Surgery Procedure MAMMOGRAM - 1 BREAST 09/19/04 birad code 2 (left breast) MAMMOGRAM - BILATERAL Mammogram,Both Breast birad 1 done 07/30/01 MAMMOGRAM - BILATERAL 09/15/02 birad code 2 MAMMOGRAM - BILATERAL 09/16/03 birad code 2 MAMMOGRAM - BILATERAL 09/20/05 birad code 2 MAMMOGRAM - BILATERAL 10/09/06 birad code 2 MAMMOGRAM - BILATERAL 10/10/07 birad code 2 MAMMOGRAM BREAST NEEDLE BIOPSY CORE RIGHT Right 10/20/2019 Benign MAMMOGRAM SCREENING-BILATERAL 11/03/08 birad code 2, yearly approriate REMOVE CATARACT, INSERT LENS PROSTH Left 04/28/2020 left EXTRACAPSULAR CATARACT REMOVAL WITH INTRAOCULAR LENS performed by Ge Tomlinson MD at OR [facility] REMOVE CATARACT, INSERT LENS PROSTH Right 05/09/2020 right EXTRACAPSULAR CATARACT REMOVAL WITH INTRAOCULAR LENS performed by Ge Tomlinson MD at OR [facility] REPAIR EPIGASTRIC HERNIA N/A 05/08/2021 REPAIR EPIGASTRIC HERNIA REDUCIBLE performed by Vinny Cooney MD at OR [facility] Review of patient's allergies indicates: Allergen Reactions Clindamycin Diarrhea Terfenadine Unknown Lamisil Azithromycin Nausea/vomiting GI Family History Problem Relation Name Age of Onset Arthritis Mother Cataracts Mother Schizophrenia Mother Seizures Mother Anxiety Disorder Mother Nervous Anxiety Disorder Grandmother (Maternal) Cintia Fisher Nervous Heart Disorder Aunt (Unspecified) Heart Disorder Uncle (Unspecified) Hypertension Aunt (Paternal) Breast Cancer Aunt (Paternal) Hypertension Uncle (Paternal) Social History Tobacco Use Smoking status: Never Smokeless tobacco: Never Substance Use Topics Alcohol use: Yes Alcohol/week: 0.0 standard drinks of alcohol Comment: rare Drug use: No Immunization History Administered Date(s) Administered COVID-19 mRNA, LNP-s, No Preserve, 2-Dose Series (Moderna) 11/19/2020, 12/17/2020, 08/21/2021 COVID-19, MRNA-LNP, 24-25, PF, 50 MCG/0.5ML, IM, 12 YRS & ABOVE (Moderna - Spikevax) 07/24/2024 COVID-19, MRNA-LNP, PF, 50 MCG/0.5 mL, 12 YRS AND ABOVE, IM (MODERNA-Spikevax) 07/18/2023 COVID-19, mRNA, LNP-s, PF, Booster, 100mcg/0.5mg (Moderna) 02/28/2022 Covid-19, Mrna, Lnp-s, Pf, Bivalent, 50 Mcg, IM, 12 yrs and above (Moderna) 08/03/2022 H1N1 2009 Influenza, IM 10/24/2009 Pneumococcal Conjugate Vacc, 13 Valent (Prevnar) 05/10/2015 Pneumococcal Polysaccharide PPV23 (Pneumovax) 12/01/2008 RSV Vac., Recomb, Adjuvant, PF,0.5 Ml (Arexvy) 09/03/2024 Season Influenza, Quad, PF, Adjuvanted, 65+ Yrs, IM (FLUAD) 06/30/2020 Seasonal Influenza Vac., MDV, IM, 0.5 mL (Fluzone) 08/10/2003, 08/31/2006, 08/26/2007, 09/15/2008, 07/01/2009, 08/30/2010, 07/11/2011, 08/26/2012, 07/22/2013, 07/08/2014 Seasonal Influenza, High Dose, Trivalent, PF, IM (Fluzone HD) 08/25/2018 Seasonal Influenza, PF, 6 M & above, IM , (FluLaval or Fluzone) 08/07/2017, 08/18/2018 Seasonal Influenza, Quadrivalent Hd (Fluzone Hd) 08/02/2021, 09/02/2022, 07/31/2023 Seasonal Influenza, Quadrivalent, No Preserve, IM 07/26/2015, 09/07/2016 Seasonal Influenza, Trivalent, Adjuvanted, 65+ YRS, PF, (Fluad) 07/15/2019, 08/06/2024 TD - Tetanus/Diptheria (ADULT) 10/14/1993, 10/04/2004 TDAP (age 10 and older)(Boostrix) 10/19/2013, 11/06/2023 Varicella Zoster Vaccine (Adult) 10/17/2012 Zoster Vaccine Recombinant (Shingrix) 01/27/2019, 05/26/2019 OBJECTIVE: BP 144/64 | Pulse 63 | Temp 98 °F (36.7 °C) (Tympanic) | Resp 18 | Ht 5' 0.98" (1.549 m) | Wt 151lb (68.5 kg) | SpO2 97% | BMI 28.55 kg/m² | BSA 1.72 m² PHYSICAL EXAM: Rpt bp 138/58 -LARC General: alert, healthy, no distress, well nourished and well developed Head: Normocephalic, atraumatic Eye Exam: PERRLA, EOMI, Conjunctiva are pink and non-injected, sclera clear Ears: External ears normal, Canal clear, TM nml Nose: no mucosal erythema, no mucosal edema, no purulent discharge Oropharynx: no exudate and no pnd Neck: supple, no adenopathy, no bruits, no JVD, thyroid normal size, non-tender, without nodularity Lymph: No palpable lymphadenopathy. Heart: regular Rhythm and rate, no murmurs. Lungs: lungs clear to auscultation, no rhonchi with forced expn Abdomen: Soft, H scar above umb from hernia sg,, non-tender, normal bowel sounds, no masses or organomegaly Extremities: no edema, no clubbing, no cyanosis Neuro Exam: alert & oriented x 3 with fluent speech, no focal motor/sensory deficits, gait normal Skin: skin color, texture, turgor are normal ASSESSMENT/PLAN: Dyslipidemia, goal LDL below 100 (Primary) - HEPATIC FUNCTION PANEL; Future; Expected date: 05/18/2025 - LIPID PANEL WITH DIRECT LDL IF TG IS HIGH; Future; Expected date: 05/18/2025 Acquired hypothyroidism - TSH WITH FREE T4 IF INDICATED; Future; Expected date: 05/18/2025 - Levothyroxine Sodium 25 MCG Oral Tablet (Levoxyl); TAKE 1 AND 1/2 TABLETS BY MOUTH DAILY FIRST THING IN THE MORNING AT LEAST 30 MIN PRIOR TO BREAKFAST OR OTHER MEDS History of transient ischemic attack (TIA) - CBC WITH WBC DIFFERENTIAL; Future; Expected date: 05/18/2025 - HEPATIC FUNCTION PANEL; Future; Expected date: 05/18/2025 - LIPID PANEL WITH DIRECT LDL IF TG IS HIGH; Future; Expected date: 05/18/2025 Senile osteoporosis - BASIC METABOLIC PANEL; Future; Expected date: 05/18/2025 Depression with anxiety Pituitary microadenoma (HCC) Vitamin D insufficiency Encounter for screening mammogram for breast cancer Extremely dense tissue of both breasts on mammography Prediabetes - HEMOGLOBIN A1C; Future; Expected date: 05/18/2025 Mixed incontinence urge and stress (male)(female) Mixed rhinitis Mild persistent asthma without complication ct current meds Call when medication refills are needed. Ct efforts at wt loss. Ct low carb diet Drink 6-8 cups water/day, get at least 60-65 g of protein in the diet per day Resume kegels exercises To Check total dose of vitamin-D she is getting with all her supplements Await dexa 40 min total time spent with patient, time spent reviewing subspecialty notes, diagnostic studies done, follow-up orders/medication refills,over 1/2 time spent in counseling, coordinating care. Follow Up: Return in about 6 months (around 05/18/2025), or if symptoms worsen or fail to improve, for Return with Physician, Fasting Labs 2-5 Days Before Next Visit. | For: Return with Physician, Fasting Labs 2-5 Days Before Next Visit Aster Shay MD 11/18/2024 documented in this encounter Nursing Notes * Linda Jarrell CMA - 11/18/2024 12:48 PM EST Pt here for a 6 month follow up. No concerns today documented in this encounter Plan of Treatment Upcoming Encounters Date Type Department Care Team (Late st Contact Info) Description 11/23/2024 1:30 PM EST Imaging Radiology [facility] [address] [place] [phone] 05/18/2025 9:00 AM EDT Office Visit General Internal Medicine [facility] [address] [place] [address] Aster Shay MD [address] [place] [address] 08/06/2025 8:20 AM EDT Telemedicine Endocrinology [address] [place] [address] Deb Pop MD [address] [place] [address] 10/20/2025 11:00 AM EST Imaging Radiology [address] [place] [id number] Scheduled Orders Name Type Priority Associated Diagnoses Orde r Schedule CBC WITH WBC DIFFERENTIAL Lab Routine History of transient ischemic attack (TIA) Expected: 05/18/2025 (Approximate), Expires: 11/18/2025 BASIC METABOLIC PANEL Lab Routine Senile osteoporosis Expected: 05/18/2025 (Approximate), Expires: 11/18/2025 HEPATIC FUNCTION PANEL Lab Routine Dyslipidemia, goal LDL below 100 History of transient ischemic attack (TIA) Expected: 05/18/2025 (Approximate), Expires: 11/18/2025 LIPID PANEL WITH DIRECT LDL IF TG IS HIGH Lab Routine Dyslipidemia, goal LDL below 100 History of transient ischemic attack (TIA) Expected: 05/18/2025 (Approximate), Expires: 11/18/2025 TSH WITH FREE T4 IF INDICATED Lab Routine Acquired hypothyroidism Expected: 05/18/2025 (Approximate), Expires: 11/18/2025 HEMOGLOBIN A1C Lab Routine Prediabetes Expected: 05/18/2025 (Approximate), Expires: 11/18/2025 Scheduled Procedures Name Priority Associated Diagnoses Date/Ti [...] D LEVEL ONCE IN A LIFETIME-USE SMARTSET# 64383 Completed 11/10/2024, 10/30/2023, 05/02/2023, Additional history exists [...] this encounter Medical Devices Implanted Type Area Batter Out Device Identifier Shelf Expiration Date Model / Serial / Lot Lens Intraoc 18.5 - [id number] - [id number] Implanted:Qty: 1 on 04/28/2020 by Ge Tomlinson MD at OR [facility] Left: Eye [employer]OM[employer] 11/13/2021 [id number] / [id number] / [id number] Lens Intraoc 18.5 - [id number] - [id number] Implanted:Qty: 1 on 05/09/2020 by Ge Tomlinson MD at OR [facility] Right: Eye BA[employer]CH [employer] LOMB 08/13/2024 [id number] / [id number] / Patch Hernia Ventralex [facility] - [id number] Implanted:Qty: 1 on 05/08/2021 by Vinny Cooney MD at OR [facility] N/A: Abdomen CR BARD : DAVOL 06/10/2021 [id number] / / [id number] documented as of this encounter Visit Diagnoses Diagnosis Dyslipidemia, goal LDL below 100- Primary Other and unspecified hyperlipidemia Acquired hypothyroidism Unspecified hypothyroidism History of transient ischemic attack (TIA) Transient ischemic attack (TIA), and cerebral infarction without residual deficits Senile osteoporosis Depression with anxiety Dysthymic disorder Pituitary microadenoma (HCC) Benign neoplasm of pituitary gland and craniopharyngeal duct (pouch) Vitamin D insufficiency Unspecified vitamin D deficiency Encounter for screening mammogram for breast cancer Extremely dense tissue of both breasts on mammography Prediabetes Other abnormal glucose Mixed incontinence urge and stress (male)(female) Mixed rhinitis Chronic rhinitis Mild persistent asthma without complication Unspecified asthma Screening mammogram for breast cancer documented in this encounter Advance Directives * Full Code (Latest Code Status on File) Date Activated Date Inactivated Comments 05/08/2021 4:10 PM 05/08/2021 9:13 PM This order r eflects the patients wishes and were consensually agreed upon. Care Teams Applique Cutter Relationship Specialty Start Date End Date Aster Shay MD [address] [place] [address] PCP - General Internal Medicine 09/07/16 documented as of this encounter
--- OUTSIDE RECORDS SUMMARY | 2025-01-25 19:38 | External Medical Summary | Summary of Care ---
Author Name Unknown Organization [facility] Address [address] [place] [address] Phone [phone] Care Team Providers Care Trimmer Sawyer Name Role Phone Aster Shay MD Primary Care Provider [phone] Reason for Visit * Reason Comments eRx-Medication Refill Encounter Details Date Type Department Care Team (Late st Contact Info) Description 01/14/2025 Refill General Internal Medicine [facility] [address] [place] [address] Aster Shay MD [address] [place] [address] TIA (transient ischemic attack); Dyslipidemia, goal LDL below 100 Allergies Active Allergy Reactions Criticality Noted Date Comments Azithromycin Nausea/vomiting Low 12/31/2003 GI Clindamycin Diarrhea Medium 07/01/2001 Terfenadine Unknown 09/26/1999 Lamisil documented as of this encounter (statuses as of 01/15/2025) Medications MULTIVITAMINS PO TABSIndications:D yslipidemia, goal LDL below 130 1 TABLET DAILY 010 Active fexofenadine (ALLYN) 180 MG TabletIndications :Allergic [...] by mouth daily. Bone Builder with magnesium ([facility] with Magnesium and Vitamin D) Active NATURAL [...] pill each day --st 05/06/2023 023 Active Albuterol Sulfate HFA 108 (90 Base) MCG/ACT Inhalation Aerosol SolutionIndicatio ns:Seasonal allergic rhinitis due to pollen,Mild persistent asthma with allergic rhinitis without complication USE 2 INHALATIONS BY MOUTH EVERY 4 HOURS NEEDED FOR SHORTNESS OF BREATH OR WHEEZING 54 g 1 023 Active Additional Information Patient not taking.Reported on 11/18/2024 Montelukast Sodium 10 MG Oral Tablet (Singulair)Indica tions:Chronic seasonal allergic rhinitis due to pollen,Intermitte nt asthma with reliever use up to twice per week, uncomplicated TAKE 1 TABLET BY MOUTH DAILY 90 Tablet 3 024 Active Escitalopram Oxalate 20 MG Oral Tablet (Lexapro)Indicati ons:Depression with anxiety TAKE 1 TABLET BY MOUTH DAILY 90 Tablet 3 025 Active Levothyroxine Sodium 25 MCG Oral Tablet (Levoxyl)Indicati ons:Acquired hypothyroidism TAKE 1 AND 1/2 TABLETS BY MOUTH DAILY FIRST THING IN THE MORNING AT LEAST 30 MIN PRIOR TO BREAKFAST OR OTHER MEDS 135 Tablet 3 025 Active Atorvastatin Calcium 20 MG Oral Tablet (Lipitor)Indicati ons:TIA (transient ischemic attack),Dyslipide alma, goal LDL below 100 TAKE ONE-HALF TABLET BY MOUTH DAILY 45 Tablet 1 025 Active Atorvastatin Calcium 20 MG Oral Tablet (Lipitor)Indicati ons:TIA (transient ischemic attack),Dyslipide alma, goal LDL below 100 TAKE ONE-HALF TABLET BY MOUTH DAILY 45 Tablet 3 024 2024 Discontinued documented as of this encounter (statuses as of 01/15/2025) Active Problems Problem Noted Date Diagnosed Date [...] ST bx++ H/O colonoscopy 09/07/2016 Overview (03/07/2017): 10/3018-jucqs-xvp-rpt 10 yrs>10/16/16-nml-rpt 10 yrs--will be 82 then.. Mixed rhinitis 05/10/2015 Mild persistent asthma without complication 03/2014 Mixed incontinence urge and stress (male)(female ) 06/10/2009 Senile osteoporosis Overview (11/24/2020): Completed 7 years of actonel 09/2009, vit D, calcium>>12/04-1.1/-2.5-unchg 2014, ct boniva(11/2018) Panic attack Overview (05/26/2014): onset in mid 30s Depression with anxiety documented as of this encounter (statuses as of 01/15/2025) Resolved Problems Problem Noted Date Diagnosed Date Resolved Date TIA (transient ischemic attack) 10/13/2018 01/08/2019 Overview (10/31/2018): Echo-10/10/18-Ef 65-70%,mildclvh,gr 1 dd,mild TR; ekg nsr ,occ pvc,rvcd Asthma with severity to be determined 06/10/2009 10/19/2013 Overview (01/23/2016): ICD-10 update of inactive term Other allergic rhinitis 06/10/200904/14 Overview (08/06/2017): ICD-10 update of inactive term Allergic rhinitis 03/07/2017 documented as of this encounter (statuses as of 01/15/2025) Immunizations Name Administration Dates Next Due COVID-19 [...] 10 and older)(Boostrix) 11/06/2023,03/2014 Varicella Zoster Vaccine Garrick lt (Zostavax) 10/17/2012 Zoster Vaccine Recombinant (Shingrix) 05/26/2019 ,01/27/2019 [...] No 07/23/2023 Does the household have a [facility] source of income? 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 on file Not on file Not on fi le documented as of this encounter Miscellaneous Notes * Telephone Encounter - Sun Perdomo, [facility] - 01/15/2025 8:44 AM EDTSigned Prescriptions: Disp Refills Atorvastatin Calcium 20 MG Oral Tablet (Li*45 Tab*1 Sig: TAKE ONE-HALF TABLET BY MOUTH DAILYAuthorizing Provider: Rasheed SHAY User: SUN DE SOUZA-------- documented in this encounter Plan of Treatment Upcoming Encounters Date Type Department Care Team (Late st Contact Info) Description 05/18/2025 9:00 AM EDT Office Visit General Internal Medicine [facility] [address] [place] [address] Aster Shay MD [address] [facility] [place] [address] 08/06/2025 8:20 AM EDT Telemedicine Endocrinology [address] [place] [address] Deb Pop MD [address] [place] [address] 10/20/2025 11:00 AM EST Imaging Radiology [address] [place] [address] Scheduled Procedures Name Priority Associated Diagnoses Date/Ti me COLONOSCOPY FLEXIBLE PROXIMAL DIAGNOSTIC Recall Colon cancer screening Health Maintenance Due Date Last Done Comments Depression Monitoring 1957 Adult Wellness Visit 02/16/2017 02/17/2016 COVID-19 Vaccine ( season) 2024 07/24/2024, 07/18/2023, 08/03/2022, Additional history exists *BISPHONATE OR OTHER ACCEPTABLE MEDICATION NEEDED FOR OSTEOPOROSIS (REFER TO SMARTSET #1146) 11/26/2024 HbA1c 11/10/2025 11/10/2024, 04/13, 10/30/2023, Additional history exists TSH 11/10/2025 11/10/2024, 07/15, 05/01/2024, Additional history exists DXA Scan 11/23/2026 11/23/2024, 11/14, 10/22/2022, Additional history exists DTap/Tdap Vaccines (3 - Td or Tdap) 11/06/2033 11/06/2023, 10/19/2013, 10/04/2004, Additional history exists Zoster Vaccines Completed 05/26/2019, 01/12, 10/17/2012 Influenza Vaccine (FLU shot) Completed , 07/31/2023, 07/30/2023, Additional history exists VITAMIN D LEVEL ONCE IN A LIFETIME-USE SMARTSET# 08720 Completed 11/10/2024, 10/30/2023, 05/02/2023, Additional history exists HPV (Gardasil) Vaccine Aged Out No lo nger eligible based on patient's age to complete this topic Hepatitis B Vaccine Aged Out No longe r eligible based on patient's age to complete this topic MENINGOCOCCAL (MENACTRA/MENVEO) Aged Out No longer eligible based on patient's age to complete this topic Meningitis B Vaccine (Bexsero/Trumemba) Aged Out No longer eligible based on patient's age to complete this topic documented as of this encounter Medical Devices Implanted Type Area Planning Specialist Device Identifier Shelf Expiration Date Model / Serial / Lot Lens Intraoc 18.5 - [id number] - [id number] Implanted:Qty: 1 on 04/28/2020 by Ge Tomlinson MD at OR [facility] Left: Eye [employer]CH [employer] LOMB 11/13/2021 [id number] / [id number] / [id number] Lens Intraoc 18.5 - [id number] - [id number] Implanted:Qty: 1 on 05/09/2020 by Ge Tomlinson MD at OR [facility] Right: Eye [employer]CH [employer] LOMB 08/13/2024 [id number] / [id number] / Patch Hernia Ventralex l - [id number] Implanted:Qty: 1 on 05/08/2021 by Vinny Cooney MD at OR [facility] N/A: Abdomen CR BARD : DAVOL 06/10/2021 [id number] / / [id number] documented as of this encounter Visit Diagnoses Diagnosis TIA (transient ischemic attack) Unspecified transient cerebral ischemia Dyslipidemia, goal LDL below 100 Other and unspecified hyperlipidemia Screening mammogram for breast cancer documented in this encounter Advance Directives * Full Code (Latest Code Status on File) Date Activated Date Inactivated Comments 05/08/2021 4:10 PM 05/08/2021 9:13 PM This order r eflects the patients wishes and were consensually agreed upon. Care Teams Trimmer Sawyer Relationship Specialty Start Date End Date Aster Shay MD [address] [place] [address] PCP - General Internal Medicine 09/07/16 documented as of this encounter
--- OUTSIDE RECORDS SUMMARY | 2025-01-25 19:38 | External Medical Summary ---
Author Name Unknown Address Unknown Organization K09[facility] [place] [address] Laboratory Report Ordering Provider Test Date Status ANUM CARPIO 11/10/2024 08:03:06 Final Observation Date Value Abnormality Reference (Units ) Status BUN 11/10/2024 08:03:06 21 Above high normal 6-20 (mg/dL) Final Creatinine 11/10/2024 08:03:06 0.8 0.5-1.0 (mg/dL) Final Glomerular filtration rate/1.73 sq M.predicted [Volume Rate/Area] in Serum, Plasma or Blood by Creatinine-based formula (CKD-EPI) 11/10/2024 08:03:06 72 >=60 (mL/min) Final eGFR is calculated based on the CKD-EPI 2020 equation. Sodium 11/10/2024 08:03:06 140 135-146 (m mol/L) Final Potassium 11/10/2024 08:03:06 4.4 3.5-5.1 (m mol/L) Final Cl 11/10/2024 08:03:06 104 98-107 (mm ol/L) Final CO2 11/10/2024 08:03:06 27 22-32 (mmo l/L) Final Anion gap 11/10/2024 08:03:06 9 7-15 (mmol /L) Final Glucose 11/10/2024 08:03:06 102 70-120 (mg /dL) Final Calcium 11/10/2024 08:03:06 9.7 8.4-10.2 ( mg/dL) Final Performing Location [facility] [place] [address]
--- OUTSIDE RECORDS SUMMARY | 2025-01-25 19:39 | External Medical Summary | Summary of Care ---
Author Name Unknown Organization [facility] Address [address] [place] [address] Phone [phone] Care Team Providers Care Belting Inspector Name Role Phone Aster Shay MD Primary Care Provider [phone] Encounter Details Date Type Department Care Team (Late st Contact Info) Description 11/05/2024 Population Health External Data Unspecified Department Allergies Active Allergy Reactions Criticality Noted Date Comments Azithromycin Nausea/vomiting Low 12/31/2003 GI Clindamycin Diarrhea Medium 07/01/2001 Terfenadine Unknown 09/26/1999 Lamisil documented as of this encounter (statuses as of 11/05/2024) Medications MULTIVITAMINS PO TABSIndications:Dy slipidemia, goal LDL below 130 1 TABLET DAILY 08/30/20 10 Active NATURAL SUPPLEMENT Take 6 Tablets by mouth in the morning. ALJ - consists of Fennel seed; Fenugreek seed; Bonset Aerial parts; Horseradish root; Mullein [place] Extract. Active fexofenadine (ALLYN) 180 MG TabletIndications: Allergic rhinitis due to [...] one pill each day --st 05/06/2023 05/06/20 Active Fluticasone Propionate HFA 110 MCG/ACT Inhalation Aerosol (Flovent HFA)Indications:Mi ld persistent asthma with allergic rhinitis without complication Inhale 1 Puff by mouth in the morning and 1 Puff before bedtime. X 2-4 weeks then once daily as directed. 48 g 05/09/20 23 Active Additional Information Patient not taking.Reported on 11/06/2023 Albuterol Sulfate HFA 108 (90 Base) MCG/ACT Inhalation Aerosol SolutionIndication s:Seasonal allergic rhinitis due to pollen,Mild persistent asthma with allergic rhinitis without complication USE 2 INHALATIONS BY MOUTH EVERY 4 HOURS NEEDED FOR SHORTNESS OF BREATH OR WHEEZING 54 g 1 07/08/20 23 Active Levothyroxine Sodium 25 MCG Oral Tablet (Levoxyl)Indicatio ns:Acquired hypothyroidism TAKE 1 AND 1/2 TABLETS BY MOUTH DAILY FIRST THING IN THE MORNING AT LEAST 30 MIN PRIOR TO BREAKFAST OR OTHER MEDS. IF UNABLE TO CUT, TAKE 2 TABLETS SATURDAY, SATURDAY, AND SATURDAY AND 1 TABLET ON ALL OTHER DAYS 135 Tablet 3 11/07/19 24 Active Benzonatate 100 MG Oral Capsule (Tesvicki Sung) Take 1 Capsule by mouth 3 times a day as needed for Cough. Do not cut, crush, or chew. 50 Capsule 1 11/28/19 24 Active Escitalopram Oxalate 20 MG Oral Tablet (Lexapro)Indicatio ns:Depression with anxiety TAKE 1 TABLET BY MOUTH DAILY 90 Tablet 3 12/06/19 24 Active Atorvastatin Calcium 20 MG Oral Tablet (Lipitor)Indicatio [...] HOUR 12 Tablet 1 10/21/19 25 Active documented as of this encounter (statuses as of 11/05/2024) Active Problems Problem Noted Date Diagnosed Date [...] ST bx++ H/O colonoscopy 09/07/2016 Overview (03/07/2017): 10/3099-thtlv-mjt-rpt 10 yrs>10/16/16-nml-rpt 10 yrs--will be 82 then.. Seasonal allergic rhinitis due to pollen 07/28/2 015 Mild persistent asthma without complication 03/2014 Mixed incontinence urge and stress (male)(female ) 06/10/2009 Senile osteoporosis Overview (11/24/2020): Completed 7 years of actonel 09/2009, vit D, calcium>>2/21-1.1/-2.5-unchg 2014, ct boniva(11/2018) Panic attack Overview (05/26/2014): onset in mid 30s Depression with anxiety documented as of this encounter (statuses as of 11/05/2024) Resolved Problems Problem Noted Date Diagnosed Date Resolved Date TIA (transient ischemic attack) 10/13/2018 01/08/2019 Overview (10/31/2018): Echo-10/10/18-Ef 65-70%,mildclvh,gr 1 dd,mild TR; ekg nsr ,occ pvc,rvcd Asthma with severity to be determined 06/10/2009 10/19/2013 Overview (01/23/2016): ICD-10 update of inactive term Other allergic rhinitis 06/10/200904/14 Overview (08/06/2017): ICD-10 update of inactive term Allergic rhinitis 03/07/2017 documented as of this encounter (statuses as of 11/05/2024) Immunizations Name Administration Dates Next Due COVID-19 [...] the money to buy more. 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 Not on file Not on fi le documented as of this encounter Plan of Treatment Upcoming Encounters Date Type Department Care Team (Late st Contact Info) Description 11/18/2024 12:20 PM EST Office Visit General Internal Medicine [facility] [address] [place] [address] Aster Shay MD [address] [place] [address] 11/23/2024 1:30 PM EST Imaging Radiology [facility] [address] [place] [phone] 08/06/2025 8:20 AM EDT Telemedicine Endocrinology [address] [place] [address] Deb Pop MD [address] [place] [id number] 10/20/2025 11:00 AM EST Imaging Radiology [address] [place] [phone] Scheduled Procedures Name Priority Associated Diagnoses Date/Ti me COLONOSCOPY FLEXIBLE PROXIMAL DIAGNOSTIC Recall Colon cancer screening Health Maintenance Due Date Last Done Comments Adult Wellness Visit 02/16/2017 02/17/2016 Depression Monitoring 05/06/2024 05/06/2023 COVID-19 Vaccine ( season) 2024 07/24/2024, 07/18/2023, 08/03/2022, Additional history exists DXA Scan 10/22/2024 10/22/2022, 06/2023, 11/23/2020, Additional history exists HbA1c 05/01/2025 05/01/2024, 10/14, 05/02/2023, Additional history exists TSH 08/05/2025 08/05/2024, 04/13, 05/02/2023, Additional history exists DTap/Tdap Vaccines (3 - Td or Tdap) 11/06/2033 11/06/2023, 10/19/2013, 10/04/2004, Additional history exists Zoster Vaccines Completed 05/26/2019, 01/12, 10/17/2012 VITAMIN D LEVEL ONCE IN A LIFETIME-USE SMARTSET# [id number] Completed 10/30/2023, 05/02/2023, 02/14/2021, Additional history exists Influenza Vaccine (FLU shot) Completed , 07/31/2023, 07/30/2023, Additional history exists HPV (Gardasil) Vaccine Aged Out No lo nger eligible based on patient's age to complete this topic Hepatitis B Vaccine Aged Out No longe r eligible based on patient's age to complete this topic MENINGOCOCCAL (MENACTRA/MENVEO) Aged Out No longer eligible based on patient's age to complete this topic documented as of this encounter Medical Devices Implanted Type Area Insurance Sales Agent Device Identifier Shelf Expiration Date Model / Serial / Lot Lens Intraoc 18.5 - [id number] - [id number] Implanted:Qty: 1 on 04/28/2020 by Ge Tomlinson MD at OR [facility] Left: Eye [employer]OM[employer] 11/13/2021 [id number] / [id number] / [id number] Lens Intraoc 18.5 - [id number] - [id number] Implanted:Qty: 1 on 05/09/2020 by Ge Tomlinson MD at OR [facility] Right: Eye [employer]USCH [employer] LOMB 08/13/2024 [id number] / [id number] / Patch Hernia Ventralex l - [id number] Implanted:Qty: 1 on 05/08/2021 by Vinny Cooney MD at OR [facility] N/A: Abdomen CR BARD : DAVOL 06/10/2021 [id number] / / [id number] documented as of this encounter Advance Directives * Full Code (Latest Code Status on File) Date Activated Date Inactivated Comments 05/08/2021 4:10 PM 05/08/2021 9:13 PM This order r eflects the patients wishes and were consensually agreed upon. Care Teams Belting Inspector Relationship Specialty Start Date End Date Aster Shay MD [address] [facility] [place] [address] PCP - General Internal Medicine 09/07/16 documented as of this encounter
--- OUTSIDE RECORDS SUMMARY | 2025-01-25 19:40 | External Medical Summary | Summary of Care ---
Author Name Unknown Organization [facility] Address [address] [place] [address] Phone [phone] Care Team Providers Care Resistor Inspector Name Role Phone Aster Shay MD Primary Care Provider [phone] Encounter Details Date Type Department Care Team (Late st Contact Info) Description 10/26/2024 Orders Only Outcomes Research Department [address] [place] [address] Miranda Ballard CHRA [facility] Research Other*[id number] Allergies Active Allergy Reactions Criticality Noted Date Comments Azithromycin Nausea/vomiting Low 12/31/2003 GI Clindamycin Diarrhea Medium 07/01/2001 Terfenadine Unknown 09/26/1999 Lamisil documented as of this encounter (statuses as of 10/26/2024) Medications MULTIVITAMINS PO TABSIndications:Dy slipidemia, goal LDL below 130 1 TABLET DAILY 08/30/20 10 Active NATURAL SUPPLEMENT Take 6 Tablets by mouth in the morning. ALJ - consists of Fennel seed; Fenugreek seed; Bonset Aerial parts; Horseradish root; Mullein Fannett Extract. Active fexofenadine (ALLYN) 180 MG TabletIndications: [...] by mouth daily. Bone Builder with magnesium ([facility] with Magnesium and Vitamin D) Active NATURAL [...] each day --st 05/06/2023 05/06/20 23 Active Fluticasone Propionate HFA 110 MCG/ACT Inhalation [...] 24 Active Benzonatate 100 MG Oral Capsule (Tessalon [...] as of this encounter (statuses as of 10/26/2024) Active Problems Problem Noted Date Diagnosed Date [...] ST bx++ H/O colonoscopy 09/07/2016 Overview (03/07/2017): 10/3025-okhrx-njc-rpt 10 yrs>10/16/16-nml-rpt 10 yrs--will be 82 then.. [...] as of this encounter (statuses as of 10/26/2024) Resolved Problems Problem Noted Date Diagnosed Date Resolved Date TIA (transient ischemic attack) 10/13/2018 01/08/2019 Overview (10/31/2018): Echo-10/10/18-Ef 65-70%,mildclvh,gr 1 dd,mild TR; ekg nsr ,occ pvc,rvcd Asthma with severity to be determined 06/10/2009 10/19/2013 Overview (01/23/2016): ICD-10 update of inactive term Other allergic rhinitis 06/10/200904/14 Overview (08/06/2017): ICD-10 update of inactive term Allergic rhinitis 03/07/2017 documented as of this encounter (statuses as of 10/26/2024) Immunizations Name Administration Dates Next Due COVID-19 [...] 07/23/2023 Does the household have a [facility] source of income? 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 [place] [address] [facility] [address] 08/06/2025 8:20 AM EDT Telemedicine Endocrinology [address] [place] [address] Deb Pop MD [address] [id number] 10/20/2025 11:00 AM EST Imaging Radiology [address] [facility] [place] [address] Scheduled Orders Name Type Priority Associated Diagnoses Orde r Schedule MYCODE SUBSEQUENT ADULT Lab Routine MyCode Research Other*[id number] Every 6 Months for 2 Occurrences starting 10/26/2024 until 11/15/2025 Scheduled Procedures Name Priority Associated Diagnoses Date/Ti [...] D LEVEL ONCE IN A LIFETIME-USE SMARTSET# [id number] Completed 10/30/2023, 05/02/2023, 02/14/2021, Additional history exists [...] this encounter Medical Devices Implanted Type Area Warm In Device Identifier Shelf Expiration Date Model / Serial / Lot Lens Intraoc 18.5 - [id number] - [id number] Implanted:Qty: 1 on 04/28/2020 by Ge Tomlinson MD at OR [facility] Left: Eye BAUSCH & LOMB 11/13/2021 [id number] / [id number] / [id number] Lens Intraoc 18.5 - [id number] - [id number] Implanted:Qty: 1 on 05/09/2020 by Ge Tomlinson MD at OR [facility] Right: Eye BAUSCH & LOMB 08/13/2024 [id number] / [id number] / Patch Hernia Ventralex l - [id number] Implanted:Qty: 1 on 05/08/2021 by Vinny Cooney MD at OR [facility] N/A: Abdomen CR BARD : DAVOL 06/10/2021 [id number] / / [id number] documented as of this encounter Visit Diagnoses Diagnosis MyCode Research Other*[id number] Screening mammogram for breast cancer documented in this encounter Advance Directives * Full Code (Latest Code Status on File) Date Activated Date Inactivated Comments 05/08/2021 4:10 PM 05/08/2021 9:13 PM This order r eflects the patients wishes and were consensually agreed upon. Care Teams Resistor Inspector Relationship Specialty Start Date End Date Aster Shay MD [address] [place] [address] PCP - General Internal Medicine 09/07/16 documented as of this encounter
--- OUTSIDE RECORDS SUMMARY | 2025-01-25 19:40 | External Medical Summary | Summary of Care ---
Author Name Unknown Organization [facility] Address [address] [place] [address] Phone [phone] Care Team Providers Care Parking Officer Name Role Phone Aster Shay MD Primary Care Provider [phone] Reason for Visit * Reason Onset Date Comments Test Results 08/31/2024 Unexpected or In determinate Result Encounter Details Date Type Department Care Team (Late st Contact Info) Description 08/31/2024 Telephone Laboratory, [place] [address] [place] [address] Deb Pop MD [address] [place] [address] Test Results (Unexpected or Indeterminate ... Allergies Active Allergy Reactions Criticality Noted Date Comments Azithromycin Nausea/vomiting Low 12/31/2003 GI Clindamycin Diarrhea Medium 07/01/2001 Terfenadine Unknown 09/26/1999 Lamisil documented as of this encounter (statuses as of 08/31/2024) Medications MULTIVITAMINS PO TABSIndications:Dy slipidemia, goal LDL below 130 1 TABLET DAILY 08/30/20 10 Active NATURAL SUPPLEMENT Take 6 Tablets by mouth in the morning. ALJ - consists of Fennel seed; Fenugreek seed; Bonset Aerial parts; Horseradish root; Mullein [place] Extract. Active fexofenadine (ALLYN) 180 MG TabletIndications: [...] by mouth daily. Bone Builder with magnesium ([facility] with Magnesium and Vitamin D) Active NATURAL [...] Active Benzonatate 100 MG Oral Capsule (Tessalon Perlcatherine) Take 1 Capsule by mouth 3 times a day as needed for Cough. Do not cut, crush, or chew. 50 Capsule 1 11/28/19 24 Active Escitalopram Oxalate 20 MG Oral Tablet (Lexapro)Pattietio ns:Depression with anxiety TAKE 1 TABLET BY [...] BREAKFAST AND SIT UPRIGHT FOR 1/2 HOUR 3 Tablet 1 04/04/20 24 Active documented as of this encounter (statuses as of 08/31/2024) Active Problems Problem Noted Date Diagnosed Date [...] ST bx++ H/O colonoscopy 09/07/2016 Overview (03/07/2017): 10/3053-jsscx-njr-rpt 10 yrs>10/16/16-nml-rpt 10 yrs--will be 82 then.. [...] as of this encounter (statuses as of 08/31/2024) Resolved Problems Problem Noted Date Diagnosed Date Resolved Date TIA (transient ischemic attack) 10/13/2018 01/08/2019 Overview (10/31/2018): Echo-10/10/18-Ef 65-70%,mildclvh,gr 1 dd,mild TR; ekg nsr ,occ pvc,rvcd Asthma with severity to be determined 06/10/2009 10/19/2013 Overview (01/23/2016): ICD-10 update of inactive term Other allergic rhinitis 06/10/200904/14 Overview (08/06/2017): ICD-10 update of inactive term Allergic rhinitis 03/07/2017 documented as of this encounter (statuses as of 08/31/2024) Immunizations Name Administration Dates Next Due COVID-19 [...] (Prevnar) 05/10/2015 Pneumococcal Polysaccharide PPV23 (Pneumovax) 12/01/2008 Season Influenza, Quad, PF, Adjuvanted, 65+ Yrs, IM (FLUAD) 06/30/2020 Seasonal Influenza Vac., MDV , IM, 0.5 mL (Fluzone) 07/08/2014,07/22/2013,08/26/2012,07/11,08/30/2010,07/01/2009,09/15/2008 ,08/26/2007,08/31/2006,08/10/2003 Seasonal Influenza, High Dos e, Trivalent, PF, IM (Fluzone HD) 08/25/2018 Seasonal Influenza, PF, 6 M & above, IM , (FluLaval or Fluzone) 08/18/2018,08/07/2017 Seasonal Influenza, Quadriva lent Hd (Fluzone Hd) 07/31/2023,09/02/2022,08/02/2021 Seasonal Influenza, Quadriva lent, No Preserve, IM 09/07/2016,07/26/2015 Seasonal Influenza, Trivalen t, Adjuvanted, 65+ YRS, PF, (Fluad) 08/06/2024,07/15/2019 TD - Tetanus/Diptheria (ADULT) 10/04/2004,1993 TDAP (age 10 and older)(Boostrix) 11/06/2023,03/2014 Varicella [...] Industry 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 * Telephone Encounter - Madeleine Chavez OSA - 08/31/2024 11:25 AM EST Hello- The radiologist discovered an unexpected or indeterminate finding on Mandy Mosley ([id number]) and asks that you review the following report. IMPRESSION: 1. 7 x 7 x 7 mm anterior pituitary lesion, stable dating back to 04/2019 sella/pituitary MR. This lesion is located at anterior/posterior pituitary junction. 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 2. 3 x 4 x 3 mm lesion anterior to infundibulum and superior to anterior pituitary, unchanged dating back to 04/2019. This lesion may represent component of anterior pituitary lesion. Diagnostic considerations include Rathke's cleft/pars intermedia cyst or superior pituitary microadenoma extension, among other entities. 3. Pituitary infundibulum deviation to left, stable. 4. Minimal nonspecific cerebral white matter FLAIR hyperintense and nonenhancing punctate foci, normal in number for stated age. 5. Mild chronic brain parenchymal volume loss. Study Type:MRI SELLA TURCICA W WO CONTRAST Date of Study: 08/29/2024 Please respond to this encounter to acknowledge receipt of this message and take responsibility to ensure this report is reviewed. Thank you, BENJAMIN Maldonado Client Service [facility] documented in this encounter Plan of Treatment Upcoming Encounters Date Type Department Care Team (Late st Contact Info) Description 10/19/2024 10:30 AM EST Imaging Radiology [address] [place] [address] 11/18/2024 12:20 PM EST Office Visit General Internal Medicine [facility] [address] [place] [address] Aster Shay MD [address] [place] [address] 11/23/2024 1:30 PM EST [facility] [address] [facility] [place] [address] 08/06/2025 8:20 AM EDT Telemedicine Endocrinology [address], [place] [address] [place] [address] Deb Pop MD [address] [facility] [place] [address] Scheduled Procedures Name Priority Associated Diagnoses Date/Ti [...] D LEVEL ONCE IN A LIFETIME-USE SMARTSET# [id number] Completed 10/30/2023, 05/02/2023, 02/14/2021, Additional history exists [...] this encounter Medical Devices Implanted Type Area Recruiting Assistant Device Identifier Shelf Expiration Date Model / Serial / Lot Lens Intraoc 18.5 - [id number] - [id number] Implanted:Qty: 1 on 04/28/2020 by Ge Tomlinson MD at OR [facility] Left: Eye BAUSCH & LOMB 11/13/2021 [id number] / [id number] / [id number] Lens Intraoc 18.5 - [id number] - [id number] Implanted:Qty: 1 on 05/09/2020 by Ge Tomlinson MD at OR [facility] Right: Eye BAUSCH & LOMB 08/13/2024 [id number] / [id number] / Patch Hernia Ventralex Sml - [id number] Implanted:Qty: 1 on 05/08/2021 by Vinny Cooney MD at OR [facility] N/A: Abdomen CR BARD : DAVOL 06/10/2021 [id number] / / [id number] documented as of this encounter Advance Directives * Full Code (Latest Code Status on File) Date Activated Date Inactivated Comments 05/08/2021 4:10 PM 05/08/2021 9:13 PM This order r eflects the patients wishes and were consensually agreed upon. Care Teams Parking Officer Relationship Specialty Start Date End Date Aster Shay MD [address] [place] [address] PCP - General Internal Medicine 09/07/16 documented as of this encounter
--- OUTSIDE RECORDS SUMMARY | 2025-01-25 19:40 | External Medical Summary | Summary of Care ---
Author Name Unknown Organization [facility] Address [address] [place] [address] Phone [phone] Care Team Providers Care Vibration Technician Name Role Phone Aster Shay MD Primary Care Provider Reason for Visit * Reason Onset Date Comments Test Results 08/31/2024 Unexpected or In determinate Result Encounter Details Date Type Department Care Team (Late st Contact Info) Description 08/31/2024 Telephone Laboratory, [place] [address] [place] [address] Deb Pop MD [address] [place] [address] Test Results (Unexpected or Indeterminate [...] seed; Bonset Aerial parts; Horseradish root; Mullein [place] Extract. Active fexofenadine (ALLYN) 180 MG TabletIndications: [...] mouth daily. Bone Builder with magnesium ([facility] with Magnesium and Vitamin D) Active NATURAL [...] ST bx++ H/O colonoscopy 09/07/2016 Overview (03/07/2017): 10/3055-osjpa-ixn-rpt 10 yrs>10/16/16-nml-rpt 10 yrs--will be 82 then.. 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 Thank you, BENJAMIN Maldonado Client Service Rep [facility] documented in this encounter Plan of Treatment Upcoming Encounters Date Type Department Care Team (Late st Contact Info) Description 10/19/2024 10:30 AM EST Imaging Radiology [facility] [address] [facility] [address] [place] [address] 11/18/2024 12:20 PM EST Office Visit General Internal Medicine [facility] [place] [address] [place] [address] Aster Shay MD [address] [facility] [place] [address] 11/23/2024 1:30 PM EST Imaging Radiology, [facility] [address] [facility] [address] 08/06/2025 8:20 AM EDT Telemedicine Endocrinology [address] [place] [address] Deb Pop MD [address] [facility] [place] [address] Scheduled Procedures Name Priority [...] D LEVEL ONCE IN A LIFETIME-USE SMARTSET# [id number] Completed 10/30/2023, 05/02/2023, 02/14/2021, Additional history exists [...] this encounter Medical Devices Implanted Type Area Button Sewer Hand Device Identifier Shelf Expiration Date Model / Serial / Lot Lens Intraoc 18.5 - [id number] - [id number] Implanted:Qty: 1 on 04/28/2020 by Ge Tomlinson MD at OR [facility] Left: Eye BAUSCH & LOMB 11/13/2021 [id number] / [id number] / [id number] Lens Intraoc 18.5 - [id number] - [id number] Implanted:Qty: 1 on 05/09/2020 by Ge Tomlinson MD at OR [facility] Right: Eye BAUSCH & LOMB 08/13/2024 [id number] / [id number] / Patch Hernia Ventralex l - [id number] Implanted:Qty: 1 on 05/08/2021 by Vinny Cooney MD at OR [facility] N/A: Abdomen CR BARD : DAVOL 06/10/2021 [id number] / / [id number] documented as of this encounter Advance Directives * Full Code (Latest Code Status on File) Date Activated Date Inactivated Comments 05/08/2021 4:10 PM 05/08/2021 9:13 PM This order r eflects the patients wishes and were consensually agreed upon. Care Teams Vibration Technician Relationship Specialty Start Date End Date Aster Shay MD [address] [facility] [place] [address] PCP - General Internal Medicine 09/07/16 documented as of this encounter
--- OUTSIDE RECORDS SUMMARY | 2025-01-25 19:40 | External Medical Summary | Summary of Care ---
Author Name Unknown Organization [facility] Address [address] [place] [address] Phone [phone] Care Team Providers Care Parking Lot Chauffeur Name Role Phone Aster Shay MD Primary Care Provider [phone] Reason for Visit * Reason Comments eRx-Medication Refill Encounter Details Date Type Department Care Team (Late st Contact Info) Description 10/19/2024 Refill General Internal Medicine [facility] [address] [place] [address] Aster Shay MD [address] [place] [address] Senile osteoporosis Allergies Active Allergy Reactions Criticality Noted Date Comments Azithromycin Nausea/vomiting Low 12/31/2003 GI Clindamycin Diarrhea Medium 07/01/2001 Terfenadine Unknown 09/26/1999 Lamisil documented as of this encounter (statuses as of 10/21/2024) Medications MULTIVITAMINS PO TABSIndications:D yslipidemia, goal LDL below 130 1 TABLET DAILY 010 Active NATURAL SUPPLEMENT Take 6 Tablets by mouth in the morning. ALJ - consists of Fennel seed; Fenugreek seed; Bonset Aerial parts; Horseradish root; Mullein [place] Extract. Active fexofenadine (ALLYN) 180 MG TabletIndications [...] or chew. 50 Capsule 1 024 Active Escitalopram Oxalate 20 MG Oral Tablet (Lexapro)Indicati ons:Depression with anxiety TAKE 1 TABLET BY MOUTH DAILY 90 Tablet 3 024 Active Atorvastatin Calcium 20 MG Oral [...] 1/2 HOUR 12 Tablet 1 025 Active Ibandronate Sodium 150 MG Oral Tablet (Boniva)Indicatio ns:Senile osteoporosis TAKE 1 TABLET BY MOUTH ONCE MONTHLY WITH 8 OUNCE WATER 1/2 HOUR BEFORE BREAKFAST AND SIT UPRIGHT FOR 1/2 HOUR 3 Tablet 1 024 2024 Discontinued documented as of this encounter (statuses as of 10/21/2024) Active Problems Problem Noted Date Diagnosed Date [...] ST bx++ H/O colonoscopy 09/07/2016 Overview (03/07/2017): 10/3070-ytwql-rax-rpt 10 yrs>10/16/16-nml-rpt 10 yrs--will be 82 then.. [...] as of this encounter (statuses as of 10/21/2024) Resolved Problems Problem Noted Date Diagnosed Date Resolved Date TIA (transient ischemic attack) 10/13/2018 01/08/2019 Overview (10/31/2018): Echo-10/10/18-Ef 65-70%,mildclvh,gr 1 dd,mild TR; ekg nsr ,occ pvc,rvcd Asthma with severity to be determined 06/10/2009 10/19/2013 Overview (01/23/2016): ICD-10 update of inactive term Other allergic rhinitis 06/10/200904/14 Overview (08/06/2017): ICD-10 update of inactive term Allergic rhinitis 03/07/2017 documented as of this encounter (statuses as of 10/21/2024) Immunizations Name Administration Dates Next Due COVID-19 [...] 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 Not on file Not on fi le documented as of this encounter Miscellaneous Notes * Telephone Encounter - Marisela Aden [facility] - 10/21/2024 8:42 AM ESTSigned Prescriptions: Disp Refills Ibandronate Sodium 150 MG Oral Tablet (Bon*12 Tab*1 Sig: TAKE 1TABLET BY MOUTH ONCE MONTHLY WITH 8 OUNCE WATER 1/2 HOUR BEFORE BREAKFAST AND SIT UPRIGHT FOR 1/2 HOURAuthorizing Provider: Rasheed SHAY User: MARISELA ADEN documented in this encounter Plan of Treatment Upcoming Encounters Date Type Department Care Team (Late st Contact Info) Description 11/18/2024 12:20 PM EST Office Visit General Internal Medicine [facility] [address] [place] [address] Aster Shay MD [address] [place] [address] 11/23/2024 1:30 PM EST Imaging Radiology [facility] [address] [place] [phone] 08/06/2025 8:20 AM EDT Telemedicine Endocrinology [address] [place] [address] Deb Pop MD [address] [place] [address] 10/20/2025 11:00 AM EST Imaging Radiology [address], [address] [place] [address] Scheduled Procedures Name Priority Associated Diagnoses Date/Ti [...] D LEVEL ONCE IN A LIFETIME-USE SMARTSET# [id number] Completed 10/30/2023, 05/02/2023, 02/14/2021, Additional history exists [...] this encounter Medical Devices Implanted Type Area Certified Executive Chef Device Identifier Shelf Expiration Date Model / Serial / Lot Lens Intraoc 18.5 - [id number] - [id number] Implanted:Qty: 1 on 04/28/2020 by Ge Tomlinson MD at OR [facility] Left: Eye BAUSCH & LOMB 11/13/2021 [id number] / [id number] / [id number] Lens Intraoc 18.5 - [id number] - [id number] Implanted:Qty: 1 on 05/09/2020 by Ge Tomlinson MD at OR [facility] Right: Eye BAUSCH & LOMB 08/13/2024 [id number] / [id number] / Patch Hernia Ventralex l - [id number] Implanted:Qty: 1 on 05/08/2021 by Vinny Cooney MD at OR [facility] N/A: Abdomen CR BARD : DAVOL 06/10/2021 [id number] / / [id number] documented as of this encounter Visit Diagnoses Diagnosis Senile osteoporosis Screening mammogram for breast cancer documented in this encounter Advance Directives * Full Code (Latest Code Status on File) Date Activated Date Inactivated Comments 05/08/2021 4:10 PM 05/08/2021 9:13 PM This order r eflects the patients wishes and were consensually agreed upon. Care Teams Parking Lot Chauffeur Relationship Specialty Start Date End Date Aster Shay MD [address] [facility] [place] [place] [address] PCP - General Internal Medicine 09/07/16 documented as of this encounter
--- OUTSIDE RECORDS SUMMARY | 2025-01-25 19:41 | External Medical Summary ---
Author Name Unknown Address Unknown Organization K01:LAB[facility]ATORY [facility] - [address] [place] [address] Laboratory Report Ordering Provider Test Date Status WILLIS BRANDON 08/05/2024 08:46:09 Final Observation Date Value Abnormality Reference (Units ) Status T4, Free 08/05/2024 08:46:09 1.2 0.9-1.7 (n g/dL) Final Performing Location [facility] - [address] [place] [address]
--- OUTSIDE RECORDS SUMMARY | 2025-01-25 19:41 | External Medical Summary ---
Author Name Unknown Address Unknown Organization K01[facility] [address] [place] [address] Laboratory Report Ordering Provider Test Date Status WILLIS BRANDON 08/05/2024 08:46:09 Final Observation Date Value Abnormality Reference (Units ) Status ACTH 08/05/2024 08:46:09 27.5 7.2-63.3 ( pg/mL) Final Performing Location [facility] - [address] [place] [address]
--- OUTSIDE RECORDS SUMMARY | 2025-01-25 19:41 | External Medical Summary ---
Author Name Unknown Address Unknown Organization K01[facility] [place] [address] [place] [address] [place] [address] Laboratory Report Ordering Provider Test Date Status WILLIS BRANDON 08/05/2024 08:46:09 Final Observation Date Value Abnormality Reference (Units ) Status TSH 08/05/2024 08:46:09 1.55 0.27-4.20 (uIU/mL) Final Performing Location LAB[facility] - [address] [facility] [address]
--- OUTSIDE RECORDS SUMMARY | 2025-01-25 19:41 | External Medical Summary | Summary of Care ---
Author Name Unknown Organization [facility] Address [address] [place] [address] Phone [phone] Care Team Providers Care Data Warehousing Engineer Name Role Phone Aster Shay MD Primary Care Provider [phone] Reason for Referral * Precert (Within 10 days (routine)) - Authorized Specialty Diagnoses / Procedures Referred By Contac t Referred To Contact Radiology Diagnoses Acquired hypothyroidism Pituitary lesion (HCC) Procedures MRI SELLA TURCICA W WO CONTRAST Deb Pop MD [address] [place] [address] Referral ID Status Reason Start Date Expiration Date V isits Requested Visits Authorized [id number] Authorized 08/03/2024 [id number] Encounter Details Date Type Department Care Team (Latest Contact Info) Description 08/03/2024 8:20 AM EDT Telemedicine Endocrinology [address] [place] [phone] Deb Pop MD [address] [place] [address] Pituitary lesion (HCC)*; Acquired hypothyroidism Allergies Active Allergy Reactions Criticality Noted Date Comments Azithromycin Nausea/vomiting Low 12/31/2003 GI Clindamycin Diarrhea Medium 07/01/2001 Terfenadine Unknown 09/26/1999 Lamisil documented as of this encounter (statuses as of 08/03/2024) Medications Medication Sig Dispensed Refills Start Date End Date Status MULTIVITAMINS PO TABSIndications:Dysl ipidemia, goal LDL below 130 1 TABLET DAILY 08/30/2010 Active NATURAL SUPPLEMENT Take 6 Tablets by mouth in the morning. ALJ - consists of Fennel seed; Fenugreek seed; Bonset Aerial parts; Horseradish root; Mullein [place] Extract. Active fexofenadine (ALLYN) 180 MG TabletIndications:Al lergic rhinitis due to other allergic trigger, unspecified rhinitis seasonality Take 1 Tab by mouth daily as needed for Allergies. 30 Tab 11 09/07/2016 Active Probiotic Product (CVS PROBIOTIC) CAPS Take by mouth. 03/07/2017 Active aspirin enteric coated 81 MG TBEC [...] 30 MG Oral Capsule Take by mouth. Active Vitamin D (Cholecalciferol) 10 MCG (400 UNIT) Oral CapsuleIndications:S enile osteoporosis one pill each day --st 05/06/2023 05/06/2023 Active Fluticasone Propionate HFA 110 MCG/ACT Inhalation Aerosol (Flovent HFA)Indications:Mild persistent asthma with allergic rhinitis without complication Inhale 1 Puff by mouth in the morning and 1 Puff before bedtime. X 2-4 weeks then once daily as directed. 48 g 05/09/2023 Active Additional Information Patient not taking.Reported on 11/06/2023 Albuterol Sulfate HFA 108 (90 Base) MCG/ACT Inhalation Aerosol SolutionIndications: Seasonal allergic rhinitis due to pollen,Mild persistent asthma with allergic rhinitis without complication USE 2 INHALATIONS BY MOUTH EVERY 4 HOURS NEEDED FOR SHORTNESS OF BREATH OR WHEEZING 54 g 1 07/08/2023 Active Levothyroxine Sodium 25 MCG Oral Tablet (Levoxyl)Indications :Acquired hypothyroidism TAKE 1 AND 1/2 TABLETS BY MOUTH DAILY FIRST THING IN THE MORNING AT LEAST 30 MIN PRIOR TO BREAKFAST OR OTHER MEDS. IF UNABLE TO CUT, TAKE 2 TABLETS SATURDAY, SATURDAY, AND SATURDAY AND 1 TABLET ON ALL OTHER DAYS 135 Tablet 3 11/07/2023 Active Benzonatate 100 MG Oral Capsule (Tesvicki Perlcatherine) Take 1 Capsule by mouth 3 times a day as needed for Cough. Do not cut, crush, or chew. 50 Capsule 1 11/28/2023 Active Escitalopram Oxalate 20 MG Oral Tablet (Lexapro)Indications :Depression with anxiety TAKE 1 TABLET BY MOUTH DAILY 90 Tablet 3 12/06/2023 Active Atorvastatin Calcium 20 MG Oral Tablet (Lipitor)Indications :TIA (transient ischemic attack),Dyslipidemia , goal LDL below 100 TAKE ONE-HALF TABLET BY MOUTH DAILY 45 Tablet 3 01/30/2024 Active Montelukast Sodium 10 MG Oral Tablet (Singulair)Indicatio ns:Chronic seasonal allergic rhinitis due to pollen,Intermittent asthma with reliever use up to twice per week, uncomplicated TAKE 1 TABLET BY MOUTH DAILY 90 Tablet 3 03/01/2024 Active Ibandronate Sodium 150 MG Oral Tablet (Boniva)Indications: Senile osteoporosis TAKE 1 TABLET BY MOUTH ONCE MONTHLY WITH 8 OUNCE WATER 1/2 HOUR BEFORE BREAKFAST AND SIT UPRIGHT FOR 1/2 HOUR 3 Tablet 1 04/04/2024 Active documented as of this encounter (statuses as of 08/03/2024) Active Problems Problem Noted Date Diagnosed Date Dyslipidemia, goal LDL below 100 05/06/2023 Acquired hypothyroidism 05/06/2023 Prediabetes 05/06/2023 Anemia 05/06/2023 History of hiatal hernia 05/04/2022 History of transient ischemic attack (TIA) 01/12 Pituitary microadenoma 10/13/2018 Overview: 06/03-Stable 6 mm hypoenhancing pituitary lesion with [...] screening mammogram for breast can cer 09/07/2016 Overview: Neg 08/29;08/30(>75% dense);09/30; 10/01-same -left neg, RT> coarse heterogeneous calcifications at 12 o'clock in the posterior depth very slowly increasing.-SCV-ind>sherry ST bx++ H/O colonoscopy 09/07/2016 Overview: 10/3098-utzsn-tmj-rpt 10 yrs>10/16/16-nml-rpt 10 yrs--will be 82 then.. Seasonal allergic rhinitis due to pollen 015 Mild persistent asthma without complication 03/2014 Mixed incontinence urge and stress (male)(female ) 06/10/2009 Senile osteoporosis Overview: Completed 7 years of actonel 09/2009, vit D, calcium>>12/04-1.1/-2.5-unchg 2014, ct boniva(st 11/2018) Panic attack Overview: onset in mid 30s Depression with anxiety documented as of this encounter (statuses as of 08/03/2024) Resolved Problems Problem Noted Date Diagnosed Date Resolved Date TIA (transient ischemic attack) 10/13/2018 01/08/2019 Overview: Echo-10/10/18-Ef 65-70%,mildclvh,gr 1 dd,mild TR; ekg nsr ,occ pvc,rvcd Asthma with severity to be determined 06/10/2009 10/19/2013 Overview: ICD-10 update of inactive term Other allergic rhinitis 06/10/200904/14 Overview: ICD-10 update of inactive term Allergic rhinitis 03/07/2017 documented as of this encounter (statuses as of 08/03/2024) Immunizations Name Administration Dates Next Due COVID-19 mRNA, LNP-s, No Pre serve, 2-Dose Series (Moderna) 08/21/2021,12/17/2020,11/19/2020 COVID-19, MRNA-LNP, 23-24, P F, 50 MCG/0.5 mL, 12 YRS AND ABOVE, IM (MODERNA-Spikevax) 07/18/2023 COVID-19, MRNA-LNP, 24-25, P F, 50 MCG/0.5ML, IM, 12 YRS & ABOVE (Moderna - Spikevax) 07/24/2024 COVID-19, mRNA, LNP-s, PF, B ooster, 100mcg/0.5mg [...] Trivalen t, Adjuvanted, 65+ YRS, PF, (Fluad) 07/15/2019 TDAP (age 10 and older)(Boostrix) 11/06/2023,03/2014 Varicella [...] y our heating, water, or electric bill? (Adult - for ages 18 years and over) Not on file 07/27/2024 Is your family able to pay t he heat, water, or electric bill? (Household - for ages 0-17 years) Not on file 07/27/2024 Does your family have access to good internet? (Household - for ages 0-17 years) Not on file 07/27/2024 Employment Status Answer Date Recorded Are you unemployed or without regular income? No 07/23/2023 Does the household have a re gular source of income? (Household - for ages 0-17 years) Not on file 07/23/2023 Social Connections Answer Date Recorded How often do you feel lonely or isolated from those around you? (Adult - for ages 18 years and over) Not on file 07/27/2024 Financial Resource Strain Answer Date R ecorded [...] ages 0-17 years) Not on file 07/23/2023 Sex and Gender Information Value Date Recorded Sex Assigned at Female 04/27/2019 11:23 AM EDT Gender Identity Female 04/27/2019 11:23 AM EDT Sexual Orientation Straight 04/27/2019 11 :23 AM EDT Job Start Date Occupation Industry Not on file Not on file Not on file documented as of this encounter Progress Notes * Deb Pop MD - 08/03/2024 8:39 AM EDT Images from the original note were not included. Patient location: HOME. I was in a hospital or clinic location. After connecting through televideo,patient was verified with two unique identifiers. 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 Methods to assure confidentiality were taken. Patient acknowledged consent and understanding of pr ivacy and security of the Telemedicine visit. The patient agreed to participate. 79-year-old female seen for follow-up of pituitary microadenoma-6 mm 2019 Hypothyroidism diagnosed in 2019 Prediabetes History: Pituitary lesion was found incidentally on MRI in 2019 during workup for TIA. She was noted to have 6 mm focus of hypoenhancement within central pituitary in 2019. Pituitary adenoma remained stable in size on MRI done in April 2020 and in May 2021. She was noted to have random elevated cortisol level in 2017, repeat testing in 2018 and later on -showed normal 1 mg dex suppression test in 2018 and normal 24 hour urinary cortisol in 2020 and 2022. She was noted to have normal pituitary hormonal profile in 2020, 2021 and 2022. She was diagnosed with hypothyroidism in 2019, currently taking levothyroxine 25 mcg 1.5 tablets daily. She takes it appropriately. Today she denies any complaints. Denies headaches or vision problems. She has been losing weight-intentional. She denies any recent fractures. She is post-menopausal She is someone who has gone through normal pubertal development started to her menstrual cycles at age 13 and never had . Current Outpatient Medications Medication Sig Dispense Refill MULTIVITAMINS PO TABS 1 TABLET DAILY NATURAL SUPPLEMENT Take 6 Tablets by mouth in the morning. ALJ - consists of Fennel seed; Fenugreekseed; [place]onset Aerial parts; Horseradish root; Mullein [place] Extract. fexofenadine (ALLYN) 180 MG Tablet Take 1 Tab by mouth daily as needed for Allergies. 30 Tab 11 Probiotic Product (CVS PROBIOTIC) CAPS Take by mouth. aspirin enteric coated 81 MG TBEC Take 1 Tablet by mouth in the morning. NATURAL SUPPLEMENT Take by mouth daily. Bone Builder with magnesium (MCHC with Magnesium and Vitamin D) NATURAL SUPPLEMENT Take by mouth daily. Vitamin D3 NATURAL SUPPLEMENT Take by mouth daily. Stomach comfort (contains vegetable probiotics) Magnesium 250 MG Tablet Take 1 Tablet by mouth in the morning. CoQ-10 100 MG Oral Capsule Take by mouth daily. Vitamin C 100 MG Oral Tablet Chewable Take 1 Tablet by mouth in the morning. Zinc 30 MG Oral Capsule Take by mouth. Vitamin D (Cholecalciferol) 10 MCG (400 UNIT) Oral Capsule one pill each day --st 05/06/2023 Fluticasone Propionate HFA 110 MCG/ACT Inhalation Aerosol (Flovent HFA) Inhale 1 Puff by mouth in the morning and 1 Puff before bedtime. X 2-4 weeks then once daily as directed. (Patient not taking: Reported on 11/06/2023) 48 g 0 Albuterol Sulfate HFA 108 (90 Base) MCG/ACT Inhalation Aerosol Solution USE 2 INHALATIONS BY MOUTH EVERY 4 HOURS NEEDED FOR SHORTNESS OF BREATH OR WHEEZING 54 g 1 Levothyroxine Sodium 25 MCG Oral Tablet (Levoxyl) TAKE 1 AND 1/2 TABLETS BY MOUTH DAILY FIRST THINGIN THE MORNING AT LEAST 30 MIN PRIOR TO BREAKFAST OR OTHER MEDS. IF UNABLE TO CUT, TAKE 2 TABLETS SATURDAY, SATURDAY, AND SATURDAY AND 1 TABLET ON ALL OTHER DAYS 135 Tablet 3 Benzonatate 100 MG Oral Capsule (Tessalon Perles) Take 1 Capsule by mouth 3 times a day as needed for Cough. Do not cut, crush, or chew. 50 Capsule 1 Escitalopram Oxalate 20 MG Oral Tablet (Lexapro) TAKE 1 TABLET BY MOUTH DAILY 90 Tablet 3 Atorvastatin Calcium 20 MG Oral Tablet (Lipitor) TAKE ONE-HALF TABLET BY MOUTH DAILY 45 Tablet 3 Montelukast Sodium 10 MG Oral Tablet (Singulair) TAKE 1 TABLET BY MOUTH DAILY 90 Tablet 3 Ibandronate Sodium 150 MG Oral Tablet (Boniva) TAKE 1 TABLET BY MOUTH ONCE MONTHLY WITH 8 OUNCE WATER 1/2 HOUR BEFORE BREAKFAST AND SIT UPRIGHT FOR 1/2 HOUR 3 Tablet 1 No current facility-administered medications for this visit. Labs: EXAM MRI SELLA TURCICA W WO CONTRAST - 05/23/2021 11:56 am HISTORY 1 yr fu COMPARISON MRI SELLA TURCICA W WO CONTRAST dated 04/27/2020; MRI BRAIN W WO CONTRAST dated 04/17/2019; MRI SELLA TURCICA W WO CONTRAST dated 04/17/2019 TECHNIQUE MRI of the sella turcica was performed with and without intravenous contrast. FINDINGS Stable hypoenhancing midline nodule in the anterior pituitary with mild T1 hyperintensity measuring6 mm in transverse dimension. Stable small exophytic suprasellar component abutting the infundibulum. The infundibulum is leftward deviated. There is no mass effect on the optic chiasm, which appearsnormal. Otherwise stable examination. No acute infarct, intracranial hemorrhage, hydrocephalus, or extra-axial fluid collections. Stable mild generalized parenchymal volume loss and chronic microvascular disease. IMPRESSION IMPRESSION Stable 6 mm hypoenhanc Dx: Incidentally found pituitary microadenoma - 1st noted in 2018 6 mm, stable on MRI 2018, 2019, 2020 Nonfunctional. Repeat MRI sella with and without contrast Blood work to check TSH/free T4, acth cortisol Return to clinic in 1 year documented in this encounter Plan of Treatment Upcoming Encounters Date Type Department Care Team (Late st Contact Info) Description 10/19/2024 10:30 AM EST Imaging Radiology [facility] [facility], [address] [place] [address] 11/18/2024 12:20 PM EST Office Visit General Internal Medicine [facility] [address] [place] [address] Aster Shay MD [address] [place], [place] [address] 11/23/2024 1:30 PM EST Imaging Radiology, [facility] [address] [facility] [place] [address] 08/06/2025 8:20 AM EDT Telemedicine Endocrinology [address] [place] [address] Deb Pop MD [address] [place] [address] Scheduled Orders Name Type Priority Associated Diagnoses Order Schedule T4, FREE Lab Routine Acquired hypothyroidism Pituitary lesion (HCC) Expected: 08/03/2024, Expires: 08/03/2025 TSH Lab Routine Acquired hypothyroidism Pituitary lesion (HCC) Expected: 08/03/2024, Expires: 08/03/2025 ADRENOCORTICOTROPIC HORMONE Lab Routine Acquired hypothyroidism Pituitary lesion (HCC) Expected: 08/10/2024, Expires: 08/03/2025 CORTISOL Lab Routine Acquired hypothyroidism Pituitary lesion (HCC) Expected: 08/03/2024, Expires: 08/03/2025 MRI SELLA TURCICA W WO CONTRAST Medical Imaging Routine Acquired hypothyroidism Pituitary lesion (HCC) Expected: 08/03/2024 (Approximate), Expires: 09/03/2025 Scheduled Procedures Name Priority Associated Diagnoses Date/Ti me COLONOSCOPY FLEXIBLE PROXIMAL DIAGNOSTIC Recall Colon cancer screening Health Maintenance Due Date Last Done Comments Adult Wellness Visit 02/16/2017 02/17/2016 Depression Monitoring 05/06/2024 05/06/2023 Influenza Vaccine (FLU shot) (#1) 2024 07/31/2023, 07/30/2023, 09/02/2022, Additional history exists DXA Scan 10/22/2024 10/22/2022, 06/2023, 11/23/2020, Additional history exists HbA1c 05/01/2025 05/01/2024, 10/14, 05/02/2023, Additional history exists TSH 05/01/2025 05/01/2024, 04/14, 10/31/2022, Additional history exists DTap/Tdap Vaccines (3 - Td or Tdap) 11/06/2033 11/06/2023, 10/19/2013, 10/04/2004, Additional history exists Zoster Vaccines Completed 05/26/2019, 01/12, 10/17/2012 VITAMIN D LEVEL ONCE IN A LIFETIME-USE SMARTSET# [id number] Completed 10/30/2023, 05/02/2023, 02/14/2021, Additional history exists COVID-19 Vaccine Completed 07/24/2024, 02/2023, 08/03/2022, Additional history exists HPV (Gardasil) Vaccine Aged Out No lo nger eligible based on patient's age to complete this topic Hepatitis B Vaccine Aged Out No longe r eligible based on patient's age to complete this topic MENINGOCOCCAL (MENACTRA/MENVEO) Aged Out No longer eligible based on patient's age to complete this topic documented as of this encounter Medical Devices Implanted Type Area Test Engineering Manager Device Identifier Shelf Expiration Date Model / Serial / Lot Lens Intraoc 18.5 - [id number] - [id number] Implanted:Qty: 1 on 04/28/2020 by Ge Tomlinson MD at OR [facility] Left: Eye [employer]OMB 11/13/2021 [id number] / [id number] / [id number] Lens Intraoc 18.5 - [id number] - [id number] Implanted:Qty: 1 on 05/09/2020 by Ge Tomlinson MD at OR [facility] Right: Eye BAUSCH [employer] LOMB 08/13/2024 [id number] / [id number] / Patch Hernia Ventralex Sml - [id number] Implanted:Qty: 1 on 05/08/2021 by Vinny Cooney MD at OR [facility] N/A: Abdomen CR BARD : DAVOL 06/10/2021 [id number] / / [id number] documented as of this encounter Visit Diagnoses Diagnosis Pituitary lesion (HCC)- Primary Unspecified disorder of the pituitary gland and its hypothalamic control Acquired hypothyroidism Unspecified hypothyroidism documented in this encounter Advance Directives * Full Code (Latest Code Status on File) Date Activated Date Inactivated Comments 05/08/2021 4:10 PM 05/08/2021 9:13 PM This order r eflects the patients wishes and were consensually agreed upon. Care Teams Data Warehousing Engineer Relationship Specialty Start Date End Date Aster Shay MD [address] [place] [address] PCP - General Internal Medicine 09/07/16 documented as of this encounter
--- OUTSIDE RECORDS SUMMARY | 2025-01-25 19:41 | External Medical Summary ---
Author Name Unknown Address Unknown Organization [id number][place] [place] [address] [place] [address] Laboratory Report Ordering Provider Test Date Status WILLIS BRANDON 08/05/2024 08:46:09 Final Observation Date Value Abnormality Reference (Units ) Status Cortisol 08/05/2024 08:46:09 15.3 2.5-19.5 ( ug/dL) Final AM Reference Range: 4.8 - 19 .5 ug/dL
PM Reference Range: 2.5 - 11.9 ug/dL Performing Location [facility] [place] [address] [place] [address]
--- OUTSIDE RECORDS SUMMARY | 2025-01-25 19:41 | External Medical Summary | Summary of Care ---
Author Name Unknown Organization [facility] Address [address] [place] [address] Phone [phone] Care Team Providers Care College Archivist Name Role Phone Aster Shay MD Primary Care Provider [phone] Reason for Visit * Reason Comments Outpatient Testing Encounter Details Date Type Department Care Team (Late st Contact Info) Description 08/05/2024 8:50 AM EDT Laboratory Laboratory [facility] [address] [place] [address] [place], [address] [place] [address] Acquired hypothyroidism; Pituitary lesion (HCC) Allergies Active Allergy Reactions Criticality Noted Date Comments Azithromycin Nausea/vomiting Low 12/31/2003 GI Clindamycin Diarrhea Medium 07/01/2001 Terfenadine Unknown 09/26/1999 Lamisil documented as of this encounter (statuses as of 08/05/2024) Medications Medication Sig Dispensed Refills Start Date End Date Status MULTIVITAMINS PO TABSIndications:Dysl ipidemia, goal LDL below 130 1 TABLET DAILY 08/30/2010 Active NATURAL SUPPLEMENT Take 6 Tablets by mouth in the morning. ALJ - consists of Fennel seed; Fenugreek seed; Bonset Aerial parts; Horseradish root; Mullein [place] Extract. Active fexofenadine (ALLYN) 180 MG TabletIndications:Al [...] 11/07/2023 Active Benzonatate 100 MG Oral Capsule (Tessalon [...] as of this encounter (statuses as of 08/05/2024) Active Problems Problem Noted Date Diagnosed Date [...] increasing.-SCV-ind>sherry ST bx++ H/O colonoscopy 09/07/2016 Overview: 10/3048-rszvi-mhd-rpt 10 yrs>10/16/16-nml-rpt 10 yrs--will be 82 then.. Seasonal allergic rhinitis due to pollen 015 Mild persistent asthma without complication 03/2014 Mixed incontinence urge and stress (male)(female ) 06/10/2009 Senile osteoporosis Overview: Completed 7 years of actonel 09/2009, vit D, calcium>>12/04-1.1/-2.5-unchg 2014, ct boniva(st 11/2018) Panic attack Overview: onset in mid 30s Depression with anxiety documented as of this encounter (statuses as of 08/05/2024) Resolved Problems Problem Noted Date Diagnosed Date Resolved Date TIA (transient ischemic attack) 10/13/2018 01/08/2019 Overview: Echo-10/10/18-Ef 65-70%,mildclvh,gr 1 dd,mild TR; ekg nsr ,occ pvc,rvcd Asthma with severity to be determined 06/10/2009 10/19/2013 Overview: ICD-10 update of inactive term Other allergic rhinitis 06/10/200904/14 Overview: ICD-10 update of inactive term Allergic rhinitis 03/07/2017 documented as of this encounter (statuses as of 08/05/2024) Immunizations Name Administration Dates Next Due COVID-19 [...] on file documented as of this encounter Plan of Treatment Upcoming Encounters Date Type Department Care Team (Late st Contact Info) Description 10/19/2024 10:30 AM EST Imaging Radiology [address] [place] [address] 11/18/2024 12:20 PM EST Office Visit General Internal Medicine [facility] [address] [place] [address] sAter Shay MD [address] [place], [place] [address] 11/23/2024 1:30 PM EST Imaging Radiology, [facility] [address] [facility] [place] [address] 08/06/2025 8:20 AM EDT Telemedicine Endocrinology [facility] [address] [place] [address] Deb Pop MD [address] [place] [address] Pending Results Name Type Priority Associated Diagnoses Date /Time T4, FREE Lab Routine Acquired hypothyroidism Pituitary lesion (HCC) 08/05/2024 8:46 AM EDT TSH Lab Routine Acquired hypothyroidism Pituitary lesion (HCC) 08/05/2024 8:46 AM EDT ADRENOCORTICOTROPIC HORMONE Lab Routine Acquired hypothyroidism Pituitary lesion (HCC) 08/05/2024 8:46 AM EDT CORTISOL Lab Routine Acquired hypothyroidism Pituitary lesion (HCC) 08/05/2024 8:46 AM EDT Scheduled Procedures Name Priority Associated Diagnoses Date/Ti [...] D LEVEL ONCE IN A LIFETIME-USE SMARTSET# [id number] Completed 10/30/2023, 05/02/2023, 02/14/2021, Additional history exists [...] this encounter Medical Devices Implanted Type Area Diesel Crane Operator Device Identifier Shelf Expiration Date Model / Serial / Lot Lens Intraoc 18.5 - [id number] - [id number] Implanted:Qty: 1 on 04/28/2020 by Ge Tomlinson MD at OR [facility] Left: Eye BAUSCH [employer] LOMB 11/13/2021 [id number] / [id number] / [id number] Lens Intraoc 18.5 - [id number] - [id number] Implanted:Qty: 1 on 05/09/2020 by Ge Tomlinson MD at OR [facility] Right: Eye BAUSCH [employer] LOMB 08/13/2024 [id number] / [id number] / Patch Hernia Ventralex l - [id number] Implanted:Qty: 1 on 05/08/2021 by Vinny Cooney MD at OR [facility] N/A: Abdomen CR BARD : DAVOL 06/10/2021 [id number] / / [id number] documented as of this encounter Visit Diagnoses Diagnosis Acquired hypothyroidism Unspecified hypothyroidism Pituitary lesion (HCC) Unspecified disorder of the pituitary gland and its hypothalamic control documented in this encounter Advance Directives * Full Code (Latest Code Status on File) Date Activated Date Inactivated Comments 05/08/2021 4:10 PM 05/08/2021 9:13 PM This order r eflects the patients wishes and were consensually agreed upon. Care Teams College Archivist Relationship Specialty Start Date End Date Aster Shay MD [address] [place] [address], [place] [address] PCP - General Internal Medicine 09/07/16 documented as of this encounter
[2025-01-25] MEDS: HEPARIN SOD 5,000 UNIT/0.5 ML VIAL SQ SCH (22:24)
[2025-01-25] MEDS: ASPIRIN 81 MG ECTAB PO SCH (22:24)
[2025-01-25] MEDS: MONTELUKAST SODIUM 10 MG TABLET PO SCH (22:24)
[2025-01-25] MEDS: ESCITALOPRAM OXALATE 20 MG TAB PO SCH (23:22)
[2025-01-26] MEDS: LEVOTHYROXINE SODIUM 25 MCG TABLET PO SCH (06:08)
[2025-01-26 08:26] LABS: Hematocrit (blood only) 37.2 % (37.0-47.0); Hemoglobin 12.3 g/dl (12.0-16.0); Mean Corpuscular Hemoglobin 27.6 pg (25.0-34.0); Mean Corpuscular Hgb Conc 33.1 g/dL (32.0-36.0); Mean Corpuscular Volume 83.4 fL (80.0-100.0); Mean Platelet Volume 10.8 fL (9.4-12.4); Platelet Count 233 K/uL (130-400); RDW Coefficient of Variation 14.2 % (11.5-14.5); RDW Standard Deviation 43.1 fL (36.4-46.3); Red Blood Count 4.46 M/uL (4.20-5.40); White Blood Count 5.36 K/ul (4.8-10.8)
[2025-01-26] MEDS: ATORVASTATIN 40 MG TAB PO SCH (09:00)
[2025-01-26] MEDS: CALCIUM 600MG + VIT D 400 IU TAB PO SCH (09:00)
[2025-01-26] MEDS ORDERED: LEVOTHYROXINE SODIUM 25 MCG TABLET PO SCH (09:00)
[2025-01-26] MEDS ORDERED: ESCITALOPRAM OXALATE 20 MG TAB PO SCH (09:00)
[2025-01-26 09:17] LABS: BUN Creatinine Ratio 22.6 (10-20); Chol HDL Ratio 1.6 (0-5); Creatinine Clr Calc Pharmacy 48.2 ml/min; Magnesium 2.1 mg/dl (1.7-2.4); Potassium 4.1 mmol/L (3.5-5.1)
[2025-01-26 09:50] LABS: Estimated Average Glucose 140 mg/dl; Hemoglobin A1C 6.5 % (4.5-5.6)
--- NOTE | 2025-01-26 11:06 | Cardiology Progress Note ---
Date of Service January 26, 2025 Assessment & Plan (1) Chest pain: (2) Hypertensive urgency: Plan 01/25/25: Patient admitted with chest pressure starting this morning while working on her computer. There was mention of possible subtle ST depression in lateral leads by EMS, but this EKG is not available to review at this time EKG on arrival to ER demonstrating NSR without acute ischemic changes. HS troponin negative x2. Symptoms alleviated by several SL nitro in ER. Echo results pending. continue ASA and statin Also found to be hypertensive on arrival. She has a history of situational hypertension but not on medical therapies, as typically well controlled. Started on losartan 100 mg daily on arrival, first dose pending. Currently resting comfortably, only mild chest pressure noted. Consider adding topical nitrates or amlodipine if she remains hypertensive or w orsening chest pain. She has dry cough, but no other clinical signs of acute respiratory illness. chest xray read as possible atelectasis vs early pneumonia. No fever or chills. NPO after midnight Lexiscan stress test tomorrow AM. 01/26/25: Chest pain resolved. no recurrent symptoms overnight Serial troponin x5 remain negative - no need for additional troponin Echo without wall motion abnormalities. Recommend nuclear lexiscan stress test - arranged for today - to r/o inducible ischemia. Underlying hypertension noted, possibly contributing to symptoms Started on losartan 100 mg daily. Just received morning dose. Re-evaluate in several hours. May need additional antihypertensive therapy if does not reach goal. Evidence of mild hypertensive heart disease on echo suggesting long standing hypertension - mild LVH, grade I diastolic dysfunction and mildly elevated pulm pressures. Consider low dose diuretic if she needs additional therapy vs amlodipine. Further recommendations pending review of her lexiscan stress test and BP readings Case discussed with Dr. Wooten I spent a total of 30 minutes on the date of service in preparation, delivery, and documentation of the care provided to this patient, excluding any time spent in the performance of separately billed services. Erendira Phelps PA-C Department of Cardiology, [facility] This chart was completed in part utilizing Speech Voice Recognition Software. Grammatical errors, random word insertions, pronoun errors, and incomplete sentences are an occasional consequence of this system due to software limitations, ambient noise, and hardware issues. Any formal questions or concerns about the content, text, or information contained within the body of this dictation should be directly addressed to the provider for clarification. Admission and Anticipated Discharge Date Admission Date: January 25, 2025 Supervising Physician Co-Signing Physician Notes Attending attestation: Case reviewed with the advanced practitioner. I have personally performed a history and physical examination on the patient. I have reviewed the advanced practitioner's documentation on the date of service referenced in note, and I agree with, and take responsibility for the plan of ca re. Nuclear stress test performed. Await results. I spent a total of 20 minutes coordinating, documenting, and providing care for this patient excluding time spent in the performance of separately billed services or time spent by another provider. Sharath Wooten, DO Subjective Patient resting in bed comfortably. Prior complaints of chest pressure resolved. no symptoms overnight. BP still fluctuating. No headaches or vision changes. No SOB. NPO for nuclear stress test. Review of Systems Review of Systems: All systems reviewed & are unremarkable except as noted in HPI & below Physical Exam Constitutional: WD/WN, vitals as above well developed; no acute distress Neck: trachea midline, no thyromegaly Respiratory: normal respiratory effort, lungs clear to auscultation + cough (dry cough) Cardiovascular: Rate/Rhythm: regular rate and regular rhythm Heart Sounds: no murmur Vessels: no JVD Extremities: no edema Gastrointestinal (Abdomen): normal bowel sounds, soft, nontender, no hepatosplenomegaly Neurologic: PERRL, EOMI, accommodation nl, no face palsy, no dysarthria Psychiatric: A+Ox3, euthymic affect Results & Data Vital Signs (Past 12 Hours) Vital Signs Temp Pulse Pulse Resp BP Pulse Ox O2 Del Method 01/26/25 10:58 62 01/26/25 07:58 36.7 C 71 18 162/69 H 94 Room Air 01/26/25 02:55 36.6 C 70 18 117/64 96 Room Air Laboratory Results Cardiac Enzymes 01/25/25 01/25/25 01/25/25 Range/Units 12:00 14:00 20:19 AST 25 (13-39) U/L Troponin I High Sens 5.8 6.9 6.2 (0-14) pg/ml 01/26/25 01/26/25 Range/Units 01:58 07:30 AST (13-39) U/L Troponin I High Sens 8.5 10.4 (0-14) pg/ml Coagulation 01/25/25 Range/Units 12:00 PT 10.6 (9.0-12.0) Seconds APTT 26 (21-31) Seconds Lipids 01/26/25 Range/Units 07:30 Triglycerides 57 (0-150) mg/dl Cholesterol 112 (0-200) mg/dl HDL Cholesterol 70 mg/dl Cholesterol/HDL Ratio 1.6 (0-5) CBC 01/25/25 01/26/25 Range/Units 12:00 07:30 WBC 7.04 5.36 (4.8-10.8) K/ul RBC 4.15 L 4.46 (4.20-5.40) M/uL Hgb 11.8 L 12.3 (12.0-16.0) g/dl Hct 35.9 L 37.2 (37.0-47.0) % Plt Count 240 233 (130-400) K/uL Neut # (Auto) 2.65 (1.40-6.50) K/uL Lymph # (Auto) 3.41 H (1.20-3.40) K/uL [place] # (Auto) 0.67 H (0.11-0.59) K/uL Eos # (Auto) 0.25 (0.00-0.50) K/uL Baso # (Auto) 0.04 (0.00-0.20) K/uL Comprehensive Metabolic Panel 01/25/25 01/26/25 Range/Units 12:00 07:30 Sodium 136 139 (136-145) mmol/L Potassium 4.1 4.1 (3.5-5.1) mmol/L Chloride 103 107 (98-107) mmol/L Carbon Dioxide 27 26 (21-32) mmol/L BUN 23 19 (6-23) mg/dl Creatinine 0.76 0.84 (0.6-1.2) mg/dl Glucose 110 H 91 (70-99(Fasting)) mg/dl Calcium 8.7 9.0 (8.6-10.3) mg/dl AST 25 (13-39) U/L ALT 19 (7-52) U/L Alkaline Phosphatase 69 (34-104) U/L Total Protein 6.9 (6.0-8.3) gm/dl Albumin 4.0 (3.4-5.0) gm/dl Intake and Output 01/25/25 01/26/25 01/26/25 22:59 06:59 14:59 Intake Total 120 / 120 Balance 120 / 120 Intake: Oral 120 / 120 Other: Other Intake Source npo Weight 67.8 kg Diagnostic Findings telemetry reviewed: NSR, no arrhythmias echo report reviewed from 01/25/25: Normal LV systolic function with ejection fraction 60 to 65%. Mild concentric LVH. No regional wall motion abnormalities noted. Left atrium is mildly dilated. Moderate TR. Pulmonary artery systolic pressure is estimated to be 36 mmHg which is upper limit of normal to mildly elevated. Grade 1 diastolic dysfunction. Medications Administered Current Inpatient Medications Acetaminophen (Acetaminophen 325 Mg Tab) 650 mg PO Q4H PRN PRN Reason: Pain or Fever Stop: 02/24/25 14:48 Albuterol (Albuterol Hfa 8 Gm Inhaler) 2 puffs INH Q6H PRN PRN Reason: Shortness Of Breath Or Wheezing Stop: 02/24/25 14:26 Aspirin (Aspirin 81 Mg Ectab) 81 mg PO HS ALISA Stop: 02/24/25 20:59 Last Admin: 01/25/25 22:24 Dose: 81 mg Atorvastatin Calcium (Atorvastatin 40 Mg Tab) 40 mg PO DAILY ALISA Stop: 02/25/25 08:59 Last Admin: 01/26/25 09:00 Dose: 40 mg Calcium/Vitamin D (Calcium 600mg + Vit D 400 Iu Tab) 1 tab PO DAILY ALISA Stop: 02/25/25 08:59 Last Admin: 01/26/25 09:00 Dose: 1 tab Escitalopram Oxalate (Escitalopram Oxalate 20 Mg Tab) 20 mg PO HS ALISA Stop: 02/24/25 23:14 Last Admin: 01/25/25 23:22 Dose: 20 mg Heparin Sodium (Porcine) (Heparin Sod 5,000 Unit/0.5 Ml Vial) 5,000 units SQ Q12 ALISA Stop: 02/24/25 20:59 Last Admin: 01/26/25 09:08 Dose: 5,000 units Levothyroxine Sodium (Levothyroxine Sodium 25 Mcg Tablet) 25 mcg PO DAILYBB ALISA Stop: 02/25/25 06:29 Last Admin: 01/26/25 06:08 Dose: 25 mcg Losartan Potassium (Losartan Potassium 50 Mg Tab) 100 mg PO QAM ALISA Stop: 02/24/25 14:48 Last Admin: 01/26/25 09:00 Dose: 100 mg Magnesium Hydroxide (Magnesium Hydroxide Susp 30 Ml Udc) 30 ml PO Q12H PRN PRN Reason: Constipation Stop: 02/24/25 14:48 Montelukast Sodium (Montelukast Sodium 10 Mg Tablet) 10 mg PO PM ALISA Stop: 02/24/25 20:59 Last Admin: 01/25/25 22:24 Dose: 10 mg Nitroglycerin (Nitroglycerin Sl 0.4 Mg/Tab Tab) 0.4 mg SL Q5M PRN PRN Reason: Chest Pain Stop: 02/24/25 14:48 Ondansetron HCl (Ondansetron Inj 2 Mg/Ml 2 Ml Vial) 4 mg IV Q6H PRN PRN Reason: Nausea Stop: 02/24/25 14:48 Polyethylene Glycol (Polyethylene (Miralax) 17 Gm Pack) 17 gm PO DAILY PRN PRN Reason: Constipation Stop: 02/24/25 14:48 (1) Chest pain Chest pain type: unspecified Qualified Code(s): R07.9 - Chest pain, unspecified
[2025-01-26 11:23] VITALS: O2SAT 97
--- NOTE | 2025-01-26 14:53 | Communication Note ---
Date of Service: January 26, 2025 Nuclear stress test is negative for inducible ischemia. Full report to follow . Borderline hypertensive BP response observed. Plan: Repeat BP now that pt is back on the floor and has had lunch. If BP under acceptable control, DC on asa 81, atorvastatin 20 mg, and losartan 100 mg daily with plans for follow up with PCP for HTN. If BP remains above goal as outpt , consider addition of HCTZ or amlodipine. Follow up with cardiology as outpt on an as needed basis. Josefina Wooten DO
[2025-01-26 15:05] VITALS: PULSE 63; RESP 20; TEMP 97.7
[2025-01-26] MEDS: REGADENOSON 0.4 MG/5 ML SYR IV ONE (15:09)
--- NOTE | 2025-01-26 15:37 | Myocardial Perfusion Study ---
Date of Service January 26, 2025 Myocardial Perfusion Study [facility] Myocardial Perfusion Study Report Procedure: 1. Myocardial perfusion study performed in multiple views/images 2. Lexiscan pharmacologic stress ECG Indications: 1. chest heaviness 2. Hypertension Ordering physician: Sharath Wooten DO Procedural details: For the stress portion of the study, Lexiscan 0.4 mg was intravenously administered followed by a saline flush. This was followed by 32.2 mCi of technetium 99m Cardiolite, injected at 12:10 am on 01/26/25. 30 minutes following the injection, imaging of the heart was performed in multiple projections. For the rest portion of the study, 11 mCi technetium 99m Card iolite was injected intravenously at 10:27 am on 01/26/25. 1 hour following the injection, imaging of the heart was performed in the same projections. A combined low intensity intensity exercise and pharmacologic stress protocol was performed. The patient ambulated on the treadmill at 0.8 mph, 0% incline for 1 minute after which she received 0.4 mg of IV regadenoson. Exercise was continued for another 2 minutes for a total of 3 minutes and 30 seconds. The stress portion of the study was terminated having reached the end of the predetermined protocol. Resting ECG demonstrated: Sinus rhythm at [address] segments Maximum heart rate: 123 bpm Maximal, age-predicted heart rate: 87% Resting blood pressure: 160/76 mmHg Maximum blood pressure: 186/[address] changes: Equivocal [address] segment depression was noted in the inferior and lateral leads. Arrhythmia: None. Symptoms: Transient chest heaviness and headache described after the administration of regadenoson that resolved in the post-rest recovery interval with rest and caffeinated cola. Findings: Rotating raw imaging demonstrated no significant lung uptake. There is no significant motion artifact. Heart size appeared normal. Myocardial perfusion images were normal both at rest and post stress Ejection fraction:> 70% % Wall motion: Normal No significant transient ischemic dilation. Impression: 1. The combined low intensity exercise/pharmacologic myocardial perfusion imaging study is normal without any evidence of scar or inducible ischemia. 2. Mild equivocal upsloping ST segment depression was observed in the inferior lateral leads on the stress EKG. 3. A borderline hypertensive response to stress was observed. 4. The left ventricular ejection fraction was normal, > 70% by gated SPECT technique.
--- NOTE | 2025-01-26 15:43 | Communication Note ---
By CMS guidelines, a determination that the admission or continued stay is not medically necessary has been made by a member of the UR committee and a physician for this hospital stay, therefore a Code 44 will be completed and the Inpatient admission will be changed to outpatient. Date of Service: January 26, 2025
--- NOTE | 2025-01-26 15:46 | Discharge Summary ---
Discharge Summary Date of Service January 26, 2025 Principal Dx & Hospital Course #1 = Principal Diagnosis (1) Chest pain: Mandy Mosley is an 79y/o F with PMHx significant for pituitary macroadenoma, HLD, acquired hypothyroidism, prediabetes, mild persistent asthma without complication, mixed rhinitis, senile osteoporosis, anemia, mixed urge and stress incontinence, depression with anxiety and history of TIA who presented to the ED via EMS from home with complaint of chest pain. S/p 324mg ASA and 2 doses of SL nitroglycerin with resolution of her chest pain. EKG performed in the ED without any obvious ischemic changes however EKG en route to the ED performed by EMS did have some subtle ST depressions in the lateral leads. Initial troponin was negative. Repeat troponin pending. CXR reviewed. No infectious signs/symptoms to suggest PNA at this time - suspect atelectasis. Prior TTE from September 2018 with LVEF=65-70%, mild concentric LVH, grade 1 DD and mild tricuspid regurgitation. Obtain updated TTE. EKG with chest pain PRN. Continue to trend troponin Q6H x 3. Appreciate routine cardiology consult. NPO at AL for possible stress testing tomorrow. Increase atorvastatin to 40mg daily. Fasting lipid panel in AM. Continue ASA 81mg daily. (2) Dysuria: Endorses having some dysuria last evening but is now resolved. UA reviewed and w/o evidence of infection. (3) Hypertensive urgency: Noted to have a significantly elevated SBP in the 200s en route to the ED; SBP improved to the 160s at the time of our conversation s/p additional dose of SL nitroglycerin. Not currently on any antihypertensives. Starting losartan 100mg daily for now and will monitor BP trend. Other Chronic Medical Conditions: HLD - Atorvastatin dose increased as per above. Anxiety - Continue Lexapro. Asthma - Well-controlled, continued Singulair. Hypothyroidism - Continue levothyroxine. Prediabetes - Hgb A1c 6.4% about 2 months ago. Can f/u regarding this as an outpatient. DVT Prophylaxis: SQ Heparin Code Status: FULL CODE PCP: Aster Shay MD Disposition: Admit to med/telemetry for further inpatient evaluation and management. Patient seen in collaboration with Dr. Rico. Please see addendum. I spent a total of 45 minutes coordinating, documenting, and providing care for this patient excluding time spent in the performance of separately billed services or time spent by another provider/QHP. This included personally reviewing all current laboratories and imaging studies, medical reconciliation, outpatient chart review and discussion with specialists. This chart was completed in part utilizing Speech Voice Recognition Software. Grammatical errors, random word insertions, pronoun errors, and incomplete sentences are an occasional consequence of this system due to software limitations, ambient noise, and hardware issues. Any formal questions or concerns about the content, text, or information contained within the body of this dictation should be directly addressed to the provider for clarification. Notes For Next Care Provider Mandy Mosley is an 79y/o F with PMHx significant for pituitary macroadenoma, HLD, acquired hypothyroidism, prediabetes, mild persistent asthma without complication, mixed rhinitis, senile osteoporosis, anemia, mixed urge and stress incontinence, depression with anxiety and history of TIA who presented to the ED via EMS from home with complaint of chest pain. Cardiology consulted, recommended stress test. Stress test showed BP related ischemia. On 01/26/2025 patient medically stable for discharge home with better BP control. To do: [ ] f/u with cardiology [ ] goal BP 130-140 systolic Medication Changes From Visit -losartan, norvasc Admission HPI Per Admitting Provider Mandy Mosley is an 79y/o F with PMHx significant for pituitary macroadenoma, H LD, acquired hypothyroidism, prediabetes, mild persistent asthma without complication, mixed rhinitis, senile osteoporosis, anemia, mixed urge and stress incontinence, depression with anxiety and history of TIA who presented to the ED via EMS from home with complaint of chest pain. History obtained from the patient, family member at bedside, discussion with ED provider and associated chart review. Endorses experiencing a sudden onset of diffuse chest pressure around 10AM this morning whilst sitting at her computer desk. Reports having panic attacks in the past with associated chest pain and pressure however this was more intense in nature when compared to those prior experiences. Mentions she took 81mg ASA without any relief in her chest pressure at home therefore she called EMS. Denies any associated SOB, diaphoresis or N/V. Did receive 324mg ASA and 1 dose of SL nitroglycerin en route to the ED with some relief. Received an additional dose of SL nitroglycerin in the ED with complete resolution of her symptoms at the time of our conversation. EKG performed in the ED without any obvious ischemic changes however EKG en route to the ED performed by EMS did have some subtle ST depressions in the lateral leads. Initial troponin was negative. Noted to have a significantly elevated SBP in the 200s en route to the ED; SBP improved to the 160s at the time of our conversation s/p additional dose of SL nitroglycerin. Not currently on any antihypertensives. Reports taking her levothyroxine this morning. Denies any abdominal pain or bowel habit changes. Does endorse experiencing some dysuria last evening but reports this has resolved. Denies any fevers, body aches or chills. Has a chronic nonproductive cough. Also with chronic rhinitis due to seasonal allergies. No smoking history. Rare alcohol use. No prior cardiac history such as DC or heart disease. Prior TTE from September 2018 with LVEF=65-70%, mild concentric LVH, grade 1 DD and mild tricuspid regurgitation. Discharge Exam Gen: A&O 3 NAD HEENT: NCAT, EOMI, not icteric. External ears normal. No rhinorrhea. Moist mucous membranes. Neck: Supple, full range of motion, no observable masses, No meningeal sign. Lungs: No Respiratory distress. CV: RRR, no edema. Abdomen: Soft, nondistended, No rebound tenderness. MSK: No joint swelling, no redness. Skin: No rashes, petechiae, lesions. Normal color per patient. Neuro: Normal Gait, Grossly intact. Psych: Appropriate for situation. Updated Medication List Medication Instructions Recorded Confirmed Type Calcium 600 + D(3) 1 tab PO DAILY 10/10/18 01/25/25 History albuterol sulfate 90 mcg/actuation 2 puff inhalation Q6H PRN 10/10/18 01/25/25 History aerosol inhaler Shortness Of Breath Or Wheezing escitalopram oxalate 10 mg tablet 20 mg PO DAILY 10/10/18 01/25/25 History montelukast 10 mg tablet 10 mg PO PM 10/10/18 01/25/25 History aspirin 81 mg tablet 81 mg PO HS 01/25/25 01/25/25 History atorvastatin 20 mg tablet 20 mg PO DAILY 01/25/25 01/25/25 History ibandronate 150 mg tablet 150 mg PO MONTHLY 01/25/25 01/25/25 History levothyroxine 25 mcg tablet 25 mcg PO DAILY 01/25/25 01/25/25 History amlodipine 2.5 mg tablet 2.5 mg PO DAILY #30 tabs 01/26/25 Rx losartan 50 mg tablet 100 mg (2 x 50 mg) PO QAM #60 tabs 01/26/25 Rx nitroglycerin 0.4 mg sublingual 0.4 mg sublingual Q5M PRN chest 01/26/25 Rx tablet (Nitrostat) pain #14 tabs Hospital Stay Data Consultations 01/25/25 13:46 ED Decision to Admit Stat 01/25/25 14:30 Consult Cardiology Routine Pending Results Patient Have Any Pending Studies at Discharge: No Discharge Instructions Given to Patient (Per Discharging Provider) 1. Please take all medications as prescribed. 2. Please follow up with PCP and cardiology. Total Time Total Time Spent Total Time Spent (In Minutes): I spent a total of 35 minutes in direct patient care, including [id number] time with the patient and/or family, reviewing medical records, ordering and reviewing diagnostic tests, and coordinating care with other healthcare providers. This time includes: history taking, physical examination, medical decision making, counseling, ECG interpretation, imaging interpretation, lab interpretation, orders, and education, excluding time spent in the performance of separately billed services.
[2025-01-26 17:14] VITALS: BP 181/74
[2025-01-26] MEDS ORDERED: amLODIPine BESYLATE 5 MG TAB PO ONE (18:00)
[2025-01-26] MEDS ORDERED: LOSARTAN POTASSIUM 50 MG TAB PO SCH ×2 (18:05→18:15)
[2025-01-26] MEDS ORDERED: amLODIPine BESYLATE 5 MG TAB PO SCH ×3 (18:15)
[2025-01-26] MEDS ORDERED: Nursing to Pharmacy Communication SCH (18:15)
[2025-01-27] MEDS ORDERED: LEVOTHYROXINE SODIUM 25 MCG TABLET PO SCH (06:30)
== END 2025-01-26 18:44 | disposition home or self-care (01) | DRG 305 ==
LOC: ED 11:45 → 2N 13:34 → INTOOBSV 13:34 → SUATTDRO 13:34 → 2N 14:14